=== PATIENT | female | born 1930 | race Caucasian/White ===

== ENCOUNTER → 2017-03-08 | Outpatient (CLI) | payer OTHER ==
[~2017-03-08] MED LIST: ACET-1138 PO; ANAS1TAB19 PO; ASPEC325 PO; CALC500T72 PO; CALCTAB5 PO; CHOL100010 PO; COMBIGAN0.2 MG/0.5 OPR; LEVO88TA3 PO; LISI5TAB3 PO; LUTEIN PO; MULT-506 PO; NAPR1TAB9 PO; OMEG10007 PO; OMEP40CA PO; POLY335019 PO; SENNTAB23; [UNRECOGNIZED DRUG - OTHER] PO; lantanoprost INT OCU
[2017-03-08 13:44] VITALS: BP 148/86; PULSE 72; TEMP 36.4; O2SAT 98
--- NOTE | 2017-03-08 14:46 | Radiation Oncology Follow-Up ---
Radiation Oncology Follow-Up Date of Visit Mar 08, 2017. Reason For Visit 6 month follow-up Radiation Completion Date 02/04/16 Diagnosis (1) Breast cancer Status: Resolved Onset Date: 11/04/2015 Permanent Comment: Abnormal left breast mammogram Status post fine-needle aspiration 11/04/2015 revealing infiltrating ductal carcinoma Estrogen receptor positive, progesterone receptor positive, HER-2/barney and positive Status post needle localization left partial mastectomy and sentinel lymph node biopsy 12/08/2015 Stage pT1b pN0M0 Status post completion of radiation therapy completed 02/04/2016 received 3000 cGy utilizing accelerated partial breast irradiation. 5 fractions. Last Edited By: Capri Mejia on Mar 08, 2017 14:36 History of Present Illness Ms. Morton is an 85-year-old female who was initially seen by me in referral on 07/30/1986. At that time she was found to have an abnormal first-ever mammogram which showed a suspicious area in the right breast. Needle localization biopsy was performed and revealed an infiltrating ductal carcinoma moderately differentiated measuring 0.9 x 0.8 cm. Lab number [id number]. The patient went on to have an axillary dissection. 55 nodes were examined and all were negative for metastatic disease. Lab #[id number]. The patient subsequently received an adjuvant course of radiation to the right breast and chest wall. She was treated from 08/16/1986 through 09/25/1986 receiving a dose of 49.3 Gy. The patient's disease was ER DC positive and she was treated with adjuvant hormonal therapy. She has been followed since that time and has done well with no complaint of right breast tenderness or soreness or right arm lymphedema. She underwent recent bilateral mammograms on 04/01/2015. The right breast was unremarkable An oval mass with circumscribed margins was present at the 2 o' clock position. Ultrasound demonstrated a solid mass at 2 o'clock position with findings that was most consistent with an intramammary lymph node. This was felt to be likely benign but a short interval follow-up mammogram and ultrasound was recommended in 6 months. Therefore on 10/21/2015 a repeat left breast mammogram and ultrasound was performed. The high density nodule at the 2 o'clock position was felt to have increased in size. Ultrasound demonstrated a solid mass measuring 6 mm x 5 mm x 5 mm. This change was felt to be suspicious and a biopsy was recommended. On 11/04/2015 a fine-needle aspiration of the left breast abnormality was performed. This was positive for an infiltrating ductal carcinoma. Accession # : [id number]. On 12/08/2015 the patient underwent a needle localization left partial mastectomy with sentinel node biopsy. A left sentinel node revealed no carcinoma seen. The immunohistochemical stains for cytokeratin were negative. The partial mastectomy specimen revealed an infiltrative adenocarcinoma Cotton grade 2 measuring 1.0 x 1.0 x 0.8 cm. All surgical margins were free of carcinoma. The closest margin to the infiltrative carcinoma was the anterior margin located 0.6 cm from the carcinoma. Additional inferior and superior lateral margins were taken and were negative. There was no lymphovascular invasion, no perineural invasion. The immunohistochemical stain for estrogen receptors were positive with strong intensity and the progesterone receptors were positive with strong intensity. Immunohistochemical stains for HER-2/barney protein following review as listed in addendum 2 indicated a HER-2/ barney score of +2 which is equivocal.. However FISH analysis of HER-2/barney was positive. Case: [id number]. The patient was therefore a pT1b pN0(sn-) ER positive, DC positive, HER-2/barney positive. The patient was seen by Dr. Tung Mitchell for consideration of adjuvant therapy. Given the HER-2/barney positivity Dr. Mitchell would like to proceed with one year of Herceptin therapy and an aromatase inhibitor for 5 years. We were asked to see her to evaluate the role of adjuvant radiation. Options of treatment were reviewed with her. She preferred to be treated in an accelerated way. She did not let a lengthy treatment due to distance of driving. She did not want this to interfere with her quality of life. She was found to be a candidate for accelerated partial breast treatment. Interim History She's been doing well over the past year. She denies any changes to her breast area and she has noted no masses or tenderness and no change of the axilla. She has no swelling of her arm. She did have some mild swelling of the breast at the end of treatment which mildly continues. She is up-to-date on mammography. This was performed 01/13/2017. This showed status post radiation therapy and lumpectomy on the right. Dystrophic calcifications. Benign, no evidence of malignancy. Normal interval follow-up is recommended in 12 months. Left breast is status post previous radiation therapy and lumpectomy. Architectural distortion, postsurgical scar, skin thickening, surgical clips and trabecular thickening. Benign, no evidence of malignancy. Normal interval follow-up is recommended in 12 months. She is on Arimidex and denies side effects. Allergies Coded Allergies: No Known Allergies (Unverified , 07/21/16) Home Medications Scheduled , 1 DROP OPR BID Anastrozole (Arimidex), 1 MG PO DAILY AT NOON Aspirin (Aspirin), 325 MG PO BID Calcium (Caltrate), 600 MG PO BID Calcium Ascorbate (Vitamin C), 500 MG PO QAM Cholecalciferol (Vitamin D), 1,000 INTER.UNIT PO QAM Fish Oil ([place]-3), 1 TAB PO QAM Levothyroxine Sodium (Levothyroxine Sodium), 1 TAB PO QAM Lisinopril (Zestril), 5 MG PO QAM Multivitamin (Multivitamin), 1 TAB PO QAM Omeprazole (Prilosec), 40 MG PO QAM Sennosides-Docusate Sodium (Stool Softener), 3 DAILY [Focus Macula/Lutein], 1 CAP PO BID Scheduled PRN Polyethylene Glycol 3350 (Miralax), 17 GM PO DAILY PRN for Constipation Miscellaneous Medications [lantanoprost], INT OCU Review of Systems Gastrointestinal: Symptoms: WNL Oral: Symptoms: No Problems Respiratory: Symptoms: WNL Urinary: Symptoms: Frequency Skin: Symptoms: No Problems Breast: Right Upper Arm Measurement: 29.0 Right Mid Arm Measurement: 20.5 Right Wrist Measurement: 14.0 Left Upper Arm Measurement: 28.0 Left Mid Arm Measurement: 20.5 Left Wrist Measurement: 14.0 Physical Exam Vital Signs Date Time Temp Pulse Resp B/P Pulse Ox O2 Delivery O2 Flow Rate FiO2 03/08/17 13:44 36.4 72 18 148/86 98 Pain: Patient Pain Scale: 0 - 10 Initial Pain Intensity: 0.0 Fatigue: None General Appearance: no apparent distress Eyes: normal inspection, EOMI ENT: normal ENT inspection, hearing grossly normal Neck: no adenopathy Respiratory/Chest: lungs clear, no respiratory distress, no accessory muscle use Breast: Breast examination reveals well-healed incisions of the left breast. There is some edema in the lower outer lower inner portion of the breast. There are no masses or tenderness no axillary adenopathy. She has no telangiectasia. Using the [place]um[place] score cosmesis she has a good outcome. Right breast shows well- healed incisions. There is an area of deficit in the central lower portion of the breast. There are no masses or tenderness no axillary adenopathy. Bilaterally using the [place]um[place] score cosmesis she has a good outcome. Cardiovascular: regular rate, rhythm, no gallop, no murmur Extremities: no pedal edema Neurologic/Psychiatric: no motor/sensory deficits, alert, normal mood/affect Additional Studies Mammography as reviewed above. Assessment & Plan Plan: She'll be due for her next mammogram after 01/13/2018. An order was given and this will be performed in [place]. Continue regular follow-up with her primary care physician. She continues follow-up with Dr. Donald. She continues on anastrozole. We asked her to return to our office in 1 year. She may call if she has any questions or concerns in the interim. Total Time In Follow-Up I spent 20 minutes speaking to the patient and perform examination. As to 15 minutes reviewing information and completing this note. Copy To Star Saba M.D.; Donny Donald D.O.
== END | disposition home or self-care (01) ==
LOC: C.ONC 13:23
PROVIDERS: ATTEND Physician Assistant Medical
DX: Z08 Encounter for follow-up examination after completed treatment for malignant neoplasm (principal); Z92.3 Personal history of irradiation; Z85.3 Personal history of malignant neoplasm of breast

== ENCOUNTER → 2017-04-25 | Outpatient (CLI) | payer OTHER ==
[~2017-04-25] MED LIST changes: -ACET-1138 PO; -NAPR1TAB9 PO
[2017-04-25 12:55] LABS: BASO % 0.6 %; BASO ABS # 0.04 K/uL (0-0.2); COMPLETE YES; EOS % 2.6 %; HEMATOCRIT 45.5 % (37-47); IG% 0.2 %; LYMPH % 26.2 %; LYMPH ABS # 1.68 K/uL (1.2-3.4); MEAN CORPUSCULAR HEMOGLOBIN 28.8 pg (25-34); MEAN CORPUSCULAR HGB CONC 32.3 g/dl (32-36); MEAN PLATELET VOLUME 10.9 fL (7.4-10.4); MONO % 6.1 %; NEUT % 64.3 %; PLATELET COUNT 258 K/uL (130-400); RED BLOOD COUNT 5.11 M/uL (4.2-5.4); WHITE BLOOD COUNT 6.42 K/uL (4.8-10.8)
[2017-04-25 17:36] LABS: ALT/SGPT 19 U/L (12-78); AST/SGOT 11 U/L (15-37); BLOOD UREA NITROGEN 17 mg/dl (7-18); CALCIUM 8.8 mg/dl (8.5-10.1); CARBON DIOXIDE 31 mmol/L (21-32); CHLORIDE 103 mmol/L (98-107); CREATININE 0.69 mg/dl (0.60-1.20); GLUCOSE 76 mg/dl (70-99); SODIUM 140 mmol/L (136-145)
[2017-04-25 17:47] LABS: ALB/GLOB RATIO 0.9 (0.9-2); ALKALINE PHOSPHATASE 77 U/L (45-117); FERRITIN 17.3 ng/ml (8.0-388.0)
== END | disposition home or self-care (01) ==
LOC: C.LABPBG 11:55
PROVIDERS: ATTEND Internal Medicine
DX: D50.0 Iron deficiency anemia secondary to blood loss (chronic) (principal); M81.0 Age-related osteoporosis without current pathological fracture

== ENCOUNTER → 2018-03-17 | Outpatient (CLI) | payer OTHER ==
[~2018-03-17] MED LIST changes: +ACET1TAB84 PO; +CALC600T9 PO; +GLUC15009 PO; +[UNRECOGNIZED DRUG - CODE] OPR; -lantanoprost INT OCU; +lantanoprost OPR
[2018-03-17 12:49] VITALS: BP 134/77; PULSE 66; TEMP 36.7; O2SAT 97
--- NOTE | 2018-03-17 14:32 | Radiation Oncology Follow-Up ---
Radiation Oncology Follow-Up Date of Visit March 17, 2018. Reason For Visit Annual follow-up Radiation Completion Date 02/04/16 Diagnosis (1) Breast cancer Status: Resolved Onset Date: 11/04/2015 Stage: l Permanent Comment: Abnormal left breast mammogram Status post fine-needle aspiration 11/04/2015 revealing infiltrating ductal carcinoma Estrogen receptor positive, progesterone receptor positive, HER-2/barney and positive Status post needle localization left partial mastectomy and sentinel lymph node biopsy 12/08/2015 Stage pT1b pN0M0 Status post completion of radiation therapy completed 02/04/2016 received 3000 cGy utilizing accelerated partial breast irradiation. 5 fractions. Last Edited By: Capri Mejia on Mar 08, 2017 14:36 History of Present Illness Ms. Morton was initially seen in referral on 07/30/1986. At that time she was found to have an abnormal first-ever mammogram which showed a suspicious area in the right breast. Needle localization biopsy was performed and revealed an infiltrating ductal carcinoma moderately differentiated measuring 0.9 x 0.8 cm. Lab number [id number]. The patient went on to have an axillary dissection. 55 nodes were examined and all were negative for metastatic disease. Lab #[id number]. The patient subsequently received an adjuvant course of radiation to the right breast and chest wall. She was treated from 08/16/1986 through 1985 receiving a dose of 49.3 Gy. The patient's disease was ER [place] positive and she was treated with adjuvant hormonal therapy. She has been followed since that time and has done well with no complaint of right breast tenderness or soreness or right arm lymphedema. She underwent recent bilateral mammograms on 04/01/2015. The right breast was unremarkable An oval mass with circumscribed margins was present at the 2 o' clock position. Ultrasound demonstrated a solid mass at 2 o'clock position with findings that was most consistent with an intramammary lymph node. This was felt to be likely benign but a short interval follow-up mammogram and ultrasound was recommended in 6 months. Therefore on 10/21/2015 a repeat left breast mammogram and ultrasound was performed. The high density nodule at the 2 o'clock position was felt to have increased in size. Ultrasound demonstrated a solid mass measuring 6 mm x 5 mm x 5 mm. This change was felt to be suspicious and a biopsy was recommended. On 11/04/2015 a fine-needle aspiration of the left breast abnormality was performed. This was positive for an infiltrating ductal carcinoma. Accession # : [id number]. On 12/08/2015 the patient underwent a needle localization left partial mastectomy with sentinel node biopsy. A left sentinel node revealed no carcinoma seen. The immunohistochemical stains for cytokeratin were negative. The partial mastectomy specimen revealed an infiltrative adenocarcinoma Diane grade 2 measuring 1.0 x 1.0 x 0.8 cm. All surgical margins were free of carcinoma. The closest margin to the infiltrative carcinoma was the anterior margin located 0.6 cm from the carcinoma. Additional inferior and superior lateral margins were taken and were negative. There was no lymphovascular invasion, no perineural invasion. The immunohistochemical stain for estrogen receptors were positive with strong intensity and the progesterone receptors were positive with strong intensity. Immunohistochemical stains for HER-2/barney protein following review as listed in addendum 2 indicated a HER-2/ barney score of +2 which is equivocal.. However FISH analysis of HER-2/barney was positive. Case: [id number]. The patient was therefore a pT1b pN0(sn-) ER positive, IL positive, HER-2/barney positive. The patient was seen by Dr. Tung Mitchell for consideration of adjuvant therapy. Given the HER-2/barney positivity Dr. Mitchell would like to proceed with one year of Herceptin therapy and an aromatase inhibitor for 5 years. We were asked to see her to evaluate the role of adjuvant radiation. Options of treatment were reviewed with her. She preferred to be treated in an accelerated way. She did not want this to interfere with her quality of life. She was found to be a candidate for accelerated partial breast treatment. Interim History She has been doing well over the past year. She has noted no changes in her breasts. She is found no masses or tenderness no change of the axilla. She has had no swelling of her arm. There is noted asymmetry from surgery and radiation. The right breast is much smaller than the left. She feels some of her problems are attributed to not wearing a bra on a regular basis. She is up- to-date on mammography. She is followed in medical oncology and is on Arimidex. She denies side effects. Allergies Coded Allergies: No Known Allergies (Unverified , 07/21/16) Home Medications Scheduled , 1 DROP OPR BID Acetaminophen (Tylenol Arthritis Ext Rel), 2 TAB PO DAILY Anastrozole (Arimidex), 1 MG PO DAILY AT NOON Aspirin (Aspirin), 325 MG PO BID Calcium Ascorbate (Vitamin C), 500 MG PO QAM Calcium Carbonate-Vitamin D (Calcium + D), 1 TAB PO DAILY Cholecalciferol (Vitamin D), 1,000 INTER.UNIT PO QAM Fish Oil ([place]-3), 1 TAB PO QAM Glucosamine Hydrochloride (Glucosamine), 2 TAB PO DAILY Levothyroxine Sodium (Levothyroxine Sodium), 1 TAB PO QAM Lisinopril (Zestril), 5 MG PO QAM Multivitamin (Multivitamin), 1 TAB PO QAM Omeprazole (Prilosec), 40 MG PO QAM Pilocarpine Hcl (Isopto Carpine 4% Oph), 1 DROP OPR QID Sennosides-Docusate Sodium (Stool Softener), 3 DAILY [Focus Macula/Lutein], 1 CAP PO BID [lantanoprost], 1 DROP OPR DAILY Scheduled PRN Polyethylene Glycol 3350 (Miralax), 17 GM PO DAILY PRN for Constipation Review of Systems Gastrointestinal: Symptoms: WNL GI Comments: Constipation with relief with stool softeners Oral: Symptoms: No Problems Respiratory: Symptoms: WNL Urinary: Symptoms: WNL Skin: Symptoms: No Problems Breast: Right Upper Arm Measurement: 28.0 Right Mid Arm Measurement: 20.2 Right Wrist Measurement: 13.6 Left Upper Arm Measurement: 28.0 Left Mid Arm Measurement: 21.0 Left Wrist Measurement: 14.5 Arm Dominence: Right Physical Exam Vital Signs Date Time Temp Pulse Resp B/P (MAP) Pulse Ox O2 Delivery O2 Flow Rate FiO2 03/17/18 12:49 36.7 66 16 134/77 97 Fatigue: None General Appearance: no apparent distress Eyes: normal inspection, EOMI ENT: normal ENT inspection, hearing grossly normal Neck: no adenopathy, thyroid normal Respiratory/Chest: lungs clear, no respiratory distress, no accessory muscle use Breast: Breast examination reveals asymmetry with the right breast being larger than the left. Bilaterally she has well-healed incisions. She has no masses or tenderness and no axillary adenopathy. There are no skin retractions or nipple changes. Using a heart score of cosmesis she has a poor outcome due to the asymmetry. Cardiovascular: regular rate, rhythm, no gallop, no murmur Extremities: no pedal edema Neurologic/Psychiatric: no motor/sensory deficits, alert, normal mood/affect Skin: warm/dry Pain Management Patient Reports Pain: No Pain Management Plan She denies pain therefore requires no pain management. Laboratory Laboratory Results: not applicable Pathology Pathology Results: not applicable Imaging Imaging Studies: were reviewed Imaging Comments discussed in the interim history. Assessment & Plan Plan: Continue with annual mammography. Continue regular follow-up with her primary care provider and medical oncology. She continues on Arimidex. We asked her to return to our office in 1 year. She may call if she has any questions or concerns in the interim. Total Time In Follow-Up I spent 20 minutes speaking to the patient and performing examination. I spent 15 minutes reviewing information and completing this note. Copy To Star Saba M.D.; Donny Donald D.O.
== END | disposition home or self-care (01) ==
LOC: C.ONC 12:42
PROVIDERS: ATTEND Physician Assistant Medical
DX: Z08 Encounter for follow-up examination after completed treatment for malignant neoplasm (principal); Z92.3 Personal history of irradiation; Z85.3 Personal history of malignant neoplasm of breast

== ENCOUNTER 2019-05-02 13:39 | Inpatient (IN) ==
[2019-05-02] MEDS ORDERED: PIPERACILL/TAZOBAC CONSULT ACTIVE PRN ×2 (14:27→16:53)
[2019-05-02] MEDS ORDERED: PIPERACILLIN/TAZOBACTAM 3.375 GM in DEXTROSE 5% 100 ML IV SCH (14:30)
[2019-05-02] MEDS ORDERED: SODIUM CHLORIDE 0.9% 1000ML 1,000 ML IV STA (14:30)
[2019-05-02 15:35] LABS: Basophils # (auto) 0.02 K/uL (0-0.2); Basophils % (auto) 0.3 %; Eosinophils # (auto) 0.03 K/uL (0-0.5); Eosinophils % (auto) 0.4 %; Hematocrit (blood only) 41.2 % (37-47); Hemoglobin 13.8 g/dL (12.0-16.0); Immature Granulocytes # (auto) 0.01 K/uL (0.00-0.02); Immature Granulocytes % (auto) 0.1 %; Lymphocytes # (auto) 1.21 K/uL (1.2-3.4); Lymphocytes % (auto) 16.7 %; Mean Corpuscular Hgb Conc 33.5 g/dL (32-36); Mean Corpuscular Volume 94.3 fL (80-100); Mean Platelet Volume 11.1 fL (7.4-10.4); Monocytes # (auto) 0.81 K/uL (0.11-0.59); Monocytes % (auto) 11.2 %; Neutrophils # (auto) 5.15 K/uL (1.4-6.5); Neutrophils % (auto) 71.3 %; Platelet Count 161 K/uL (130-400); RDW Coefficient of Variation 13.3 % (11.5-14.5); Red Blood Count 4.37 M/uL (4.2-5.4); White Blood Count 7.23 K/uL (4.8-10.8)
--- NOTE | 2019-05-02 15:40 | History & Physical Report ---
Date of Service May 02, 2019 Assessment & Plan (1) Acute cholecystitis: Continue intravenous Zosyn. Keep n.p.o. Administer IV fluids. Consult general surgery Present on Admission?: Yes (2) Hypothyroidism: Continue oral thyroid replacement (3) Hypertension: Continue lisinopril therapy (4) DVT prophylaxis: Heparin subcu History of Present Illness Chief Complaint: Nausea and right upper quadrant pain Primary Care Provider: Star Saba MD 88-year-old female with nausea and right upper quadrant pain for the past 3 days. She saw her primary care physician who obtained a CT scan which reveals evidence of acute cholecystitis. The patient does not appear to be septic at this time and she continues to have bowel movements although she has chronic constipation. Lab studies are pending at the time of my examination. She has been administered Zosyn and surgery will be evaluating her shortly here in the ED. She will be kept n.p.o. in the event that surgery will be done later today. Allergies Allergy/AdvReac Type Severity Reaction Status Date / Time No Known Drug Allergies Allergy Verified 05/02/19 14:33 Home Medications Home Medications Medication Instructions Recorded Confirmed Type tamoxifen 20 mg tablet 20 mg PO DAILY 03/21/19 05/02/19 History aspirin 325 mg tablet 325 mg PO DAILY tab 04/23/19 05/02/19 History lisinopril 5 mg tablet 5 mg PO DAILY #90 tab 04/23/19 05/02/19 History polyethylene glycol 3350 17 17 g PO DAILY PRN gm 04/23/19 05/02/19 History gram/dose oral powder acetaminophen ER 650 mg 1,300 mg PO DAILY tab 05/01/19 05/02/19 History tablet,extended release amoxicillin 500 mg tablet 2,000 mg PO .COMPLEX tab 05/01/19 05/02/19 History beta xiykgfnz-D-Q-lutein-min #29 1 tab PO BID tab 05/01/19 05/02/19 History 5,000 unit-60 mg-30 unit-2 mg tablet brimonidine-timolol 0.2 %-0.5 % 2 drops OP .COMPLEX ml 05/01/19 05/02/19 History eye drops calcium carbonate-vitamin D3 600 1 cap PO DAILY cap 05/01/19 05/02/19 History mg calcium-200 unit capsule cholecalciferol (vitamin D3) 2,000 2,000 units PO DAILY cap 05/01/19 05/02/19 History unit capsule docusate calcium 240 mg capsule 240 mg PO DAILY PRN cap 05/01/19 05/02/19 History tkrjlragzfz-zfe-gkgbqwbhn-hrb 1 tab PO DAILY tab 05/01/19 05/02/19 History 149-hyalur 500 mg-500 mg-66.7 mg tablet latanoprost 0.005 % eye drops 1 drops OP .COMPLEX ml 05/01/19 05/02/19 History levothyroxine 88 mcg tablet 88 mcg PO DAILY #90 tab 05/01/19 05/02/19 History multivitamin tablet 1 tab PO DAILY 05/01/19 05/02/19 History omega-3 acid ethyl esters 1 gram 1 cap PO DAILY cap 05/01/19 05/02/19 History capsule omeprazole 40 mg capsule,delayed 40 mg PO DAILY #90 cap 05/01/19 05/02/19 History release pilocarpine 1 % eye drops 1 drops OP QID ml 05/01/19 05/02/19 History netarsudil [Rhopressa] 1 drp OPHTHALMIC (EYE) PM 05/02/19 05/02/19 History Past Med/Surg History Medical History Acute cholecystitis (Acute) Solitary thyroid nodule (Acute) Osteoporosis (Acute) Macular degeneration, wet (Chronic) Iron deficiency anemia due to chronic blood loss (Acute) Hypothyroidism (Chronic) Hypertension (Chronic) Hiatal hernia with gastroesophageal reflux (Acute) Generalized osteoarthritis of multiple sites (Acute) Gait disturbance (Acute) Chronic right sacroiliac pain (Acute) Chronic constipation (Acute) No pertinent family history Surgical History No pertinent past surgical history Family History Other No pertinent family history Social History Preferred Language: Citizen Of [place] Communication Ability: Effective Visual Impairment: No Limitations Hearing Ability: Normal Feels Safe at Home: Yes Smoking Status: Never smoker Review of Systems Review of Systems: Constitutional-no fever or chills ENT-no blurred vision, no double vision, no epistaxis, no sore throat Respiratory-no cough, no wheezing, no shortness of breath Cardiac-no palpitations, no chest pain, no syncope GI-nausea and right upper quadrant discomfort for the past 3 days -no urinary retention, no urinary incontinence, no dysuria, no hematuria Musculoskeletal-no joint pain, no muscle tenderness Skin-no bruising, no rashes, no pruritus Neuro-no isolated weakness, no paresthesia, no weakness Psych-no depression, no anxiety Physical Exam Physical Exam: General-alert and oriented x3, no fevers, no chills HEENT-head atraumatic and normocephalic, TMs intact bilaterally, pupils equal and reactive to light, extraocular muscles intact Neck-no lymphadenopathy or thyromegaly, trachea midline Chest-clear to auscultation percussion. No rales wheezing or rhonchi Cardiac-regular rate and rhythm, normal S1 and S2, no murmurs Abdomen-normal bowel sounds, no hepatosplenomegaly. Tenderness in the right upper quadrant. No overt rebound or guarding Extremities-no cyanosis, clubbing, or edema Neuro-cranial nerves II through XII intact, motor and sensory function within normal limits, strength symmetrical 5/5, no focal deficits Psych-normal affect, normal mood Results & Data Vital Signs (Past 12 Hours) Vital Signs Temp Pulse Resp BP Pulse Ox 05/02/19 13:42 36.5 C 81 20 148/75 H 98 PG Care Time/CCT Total # of Minutes Spent Total Time Spent with Patient: Total time spent is greater than 50% in coordination of care (as documented) at patient's floor/unit and/or counseling patient:
[2019-05-02 15:44] LABS: Appearance Urine Clear (Clear); Bacteria Urine Automated Negative (Negative); Bilirubin Urine Negative (Negative); Blood Urine Negative (Negative); Color Urine Yellow; Epithelial Cell Urine Auto >30 /lpf (0-5); Glucose Urine UA Negative (Negative); Ketones Urine Negative (Negative); Leukocyte Esterase Urine 2+ (Negative); Nitrite Urine Negative (Negative); Protein Urine Negative (Negative); RBC Urine Automated 0-4 /hpf (0-4); Specific Gravity Urine 1.013 (1.000-1.030); Urobilinogen Urine Negative (Negative)
[2019-05-02 15:52] LABS: Albumin Level 2.9 gm/dl (3.4-5.0); BUN Creatinine Ratio 16.9 (10-20); Calcium 8.5 mg/dl (8.5-10.1); Creatinine Clr Calc Pharmacy 58.9 ml/min; Potassium 3.7 mmol/L (3.5-5.1)
--- NOTE | 2019-05-02 15:53 | Surgery Consultation ---
Date of Consultation May 02, 2019 Assessment & Plan (1) Acute cholecystitis: pt is a 88 year-old female who presents to ER with 2 days history nausea and RUQ pain, CT scan Dx acute cholecystitis, IMP: acute cholecystitis, Plan, I agree with hospitalist treatment plan, I recommend to do laparosocpic cholecystectomy, possible open or cholangiogram tomorrow, D/W benefits, risks and alternatives of the surgery, the risks - infection, bleeding, injury CBD, bowel, AL, DVT, stroke, , pt and her son understood, they agree with the plan, I answered all questions, repeat labs in am , CBC, CMP, History of Present Illness History of Present Illness Chief Complaint: Nausea and right upper quadrant pain Primary Care Provider: Star Saba MD 88-year-old female with nausea and right upper quadrant pain for the past 3 days. She saw her primary care physician who obtained a CT scan which reveals evidence of acute cholecystitis. The patient does not appear to be septic at this time and she continues to have bowel movements although she has chronic constipation. Lab studies are pending at the time of my examination. She has been administered Zosyn and surgery will be evaluating her shortly here in the ED. She will be kept n.p.o. in the event that surgery will be done later today. I got a call for consult acute cholecystitis, I reviewed pt's H/P with pt and her son at ER bedside.pt is still have sone nausea and RUQ pain, no chest pain, no diarrhea, no fever. Allergies Allergy/AdvReac Type Severity Reaction Status Date / Time No Known Drug Allergies Allergy Verified 05/02/19 14:33 Home Medications Home Medications Medication Instructions Recorded Confirmed Type tamoxifen 20 mg tablet 20 mg PO DAILY 03/21/19 05/02/19 History aspirin 325 mg tablet 325 mg PO DAILY tab 04/23/19 05/02/19 History lisinopril 5 mg tablet 5 mg PO DAILY #90 tab 04/23/19 05/02/19 History polyethylene glycol 3350 17 17 g PO DAILY PRN gm 04/23/19 05/02/19 History gram/dose oral powder acetaminophen ER 650 mg 1,300 mg PO DAILY tab 05/01/19 05/02/19 History tablet,extended release amoxicillin 500 mg tablet 2,000 mg PO .COMPLEX tab 05/01/19 05/02/19 History beta zlldjyfo-A-E-lutein-min #29 1 tab PO BID tab 05/01/19 05/02/19 History 5,000 unit-60 mg-30 unit-2 mg tablet brimonidine-timolol 0.2 %-0.5 % 2 drops OP .COMPLEX ml 05/01/19 05/02/19 History eye drops calcium carbonate-vitamin D3 600 1 cap PO DAILY cap 05/01/19 05/02/19 History mg calcium-200 unit capsule cholecalciferol (vitamin D3) 2,000 2,000 units PO DAILY cap 05/01/19 05/02/19 History unit capsule docusate calcium 240 mg capsule 240 mg PO DAILY PRN cap 05/01/19 05/02/19 History oroaexrnnmz-csz-iyfdjhrfk-hrb 1 tab PO DAILY tab 05/01/19 05/02/19 History 149-hyalur 500 mg-500 mg-66.7 mg tablet latanoprost 0.005 % eye drops 1 drops OP .COMPLEX ml 05/01/19 05/02/19 History levothyroxine 88 mcg tablet 88 mcg PO DAILY #90 tab 05/01/19 05/02/19 History multivitamin tablet 1 tab PO DAILY 05/01/19 05/02/19 History omega-3 acid ethyl esters 1 gram 1 cap PO DAILY cap 05/01/19 05/02/19 History capsule omeprazole 40 mg capsule,delayed 40 mg PO DAILY #90 cap 05/01/19 05/02/19 History release pilocarpine 1 % eye drops 1 drops OP QID ml 05/01/19 05/02/19 History netarsudil [Rhopressa] 1 drp OPHTHALMIC (EYE) PM 05/02/19 05/02/19 History Patient History Medical History Acute cholecystitis (Acute) Solitary thyroid nodule (Acute) Osteoporosis (Acute) Macular degeneration, wet (Chronic) Iron deficiency anemia due to chronic blood loss (Acute) Hypothyroidism (Chronic) Hypertension (Chronic) Hiatal hernia with gastroesophageal reflux (Acute) Generalized osteoarthritis of multiple sites (Acute) Gait disturbance (Acute) Chronic right sacroiliac pain (Acute) Chronic constipation (Acute) No pertinent family history Surgical History No pertinent past surgical history Family History Other No pertinent family history Social History Preferred Language: Citizen Of [place] Communication Ability: Effective Visual Impairment: No Limitations Hearing Ability: Normal Feels Safe at Home: Yes Smoking Status: Never smoker Review of Systems Review of Systems: All systems reviewed & are unremarkable except as noted in HPI & below Ear, Nose, Mouth, Throat: as per Subjective / HPI Respiratory: as per Subjective / HPI Cardiovascular: Additional Comments: ascending aorta-4.8cm Gastrointestinal: as per Subjective / HPI GERD, hiatal hernia Genitourinary: as per Subjective / HPI breast cancer 2015 Neurologic: as per Subjective / HPI Psychiatric: as per Subjective / HPI Endocrine: hypothyroidism Hematologic / Lymphatic: as per Subjective / HPI Physical Exam Constitutional: WD/WN, vitals as above well developed and well nourished ENMT: external ear and nose normal, oropharynx normal Neck: trachea midline, no thyromegaly Respiratory: normal respiratory effort, lungs clear to auscultation normal respiratory effort Cardiovascular: RRR, no murmur, no edema Rate/Rhythm: regular rate and regular rhythm Heart Sounds: normal S1 and normal S2 Gastrointestinal (Abdomen): soft, some tenderness at RUQ and RLQ, no rebound pain, no mass, BS +, no distend Neurologic: patellar DTR's 2+ bilat, sensation intact Psychiatric: A+Ox3, euthymic affect Orientation: alert and oriented x 3 Lymphatic: no cervical or axillary lymphadenopathy Results & Data Vital Signs (Past 12 Hours) Vital Signs Temp Pulse Resp BP Pulse Ox 05/02/19 13:42 36.5 C 81 20 148/75 H 98 Laboratory Results Abnormal lab results 05/02/19 05/02/19 05/02/19 Range/Units 15:10 15:10 15:20 MPV 11.1 H (7.4-10.4) fL [place] # (Auto) 0.81 H (0.11-0.59) K/uL AST 8 L (15-37) U/L ALT 11 L (12-78) U/L Albumin 2.9 L (3.4-5.0) gm/dl Globulin 4.1 H (2.5-4.0) gm/dl Albumin/Globulin Ratio 0.7 L (0.9-2) Lipase 40 L (73-393) U/L Ur Leukocyte Esterase 2+ H (Negative) U Epithel Cells (Auto) >30 H (0-5) /lpf Diagnostic Findings CT OF THE ABDOMEN AND PELVIS WITHOUT CONTRAST CLINICAL HISTORY: Mass noted on KUB. COMPARISON STUDY: KUB May 01, 2019. TECHNIQUE: Axial images of the abdomen and pelvis were obtained without IV contrast. Oral contrast was administered. Automated exposure control was utilized for the study. A dose lowering technique was utilized adhering to the principles of ALARA. FINDINGS: Imaged portions the lower chest demonstrate dilatation of the ascending aorta which measures 4.8 cm. The heart is moderately enlarged. Extensive coronary artery calcification is present. Large hiatal hernia with partially intrathoracic stomach is noted. Adjacent airspace opacity reflects atelectasis. There are post therapeutic findings within the left breast. Evaluation of the abdomen and pelvis is suboptimal on this unenhanced examination. There is no biliary or pancreatic ductal dilatation. The gallbladder is markedly distended with wall thickening and extensive adjacent infiltration and fluid. The gallbladder measures 15 x 5.6 x 4.9 cm. The material within the gallbladder is slightly dense. A densely calcified 6.7 x 5.9 cm lesion within the inferior aspect of the spleen is noted. This corresponds to the finding on KUB performed May 01, 2019. This is unchanged from a chest radiograph September 01, 2011. No definitive soft tissue component is noted. Images of the pelvis are degraded by streak artifact from bilateral hip arthroplasties. A small amount of ascites within the pelvis is noted. There is also a small amount of fluid within the right groin hernia, likely femoral. Extensive colonic diverticulosis is noted without evidence for acute diverticulitis. There is no gas within the gallbladder wall. No pneumatosis, free air or portal venous gas is present. Punctate bilateral renal calculi are noted. There is no hydronephrosis. IMPRESSION: 1. Markedly distended gallbladder which extends into the right lower quadrant. Moderate gallbladder wall thickening with extensive pericholecystic infiltration and fluid. The findings suggest severe acute cholecystitis. Surgical consultation is recommended. Discussed with Teresa Young at time of dictation. 2. Densely calcified 6.7 x 5.9 cm splenic lesion. Although indeterminate, this is similar to a chest radiograph of September 01, 2011 and is therefore likely benign. 3. Moderate dilatation of visualized portions of the ascending aorta, measuring 4.8 cm. Extensive coronary artery calcification. 4. Large hiatal hernia with partially intrathoracic stomach.
[2019-05-02 15:55] LABS: Albumin Globulin Ratio 0.7 (0.9-2); Bilirubin,Total 0.6 mg/dl (0.2-1); Globulin 4.1 gm/dl (2.5-4.0)
[2019-05-02] MEDS ORDERED: ACETAMINOPHEN 325 MG TAB PO PRN (16:53)
[2019-05-02] MEDS ORDERED: POLYETHYLENE (MIRALAX) 17 GM PACK PO PRN (16:53)
[2019-05-02] MEDS ORDERED: ONDANSETRON INJ 2 MG/ML 2 ML VIAL IV PRN (16:53)
[2019-05-02] MEDS ORDERED: DOCUSATE CALCIUM 240 MG CAPSULE PO PRN (16:53)
--- NOTE | 2019-05-02 16:55 | Emergency Department Note ---
ED Visit Note I assisted Dr. Plata in the care of this patient. Please refer to his note for complete details of ED course. . Resident Activity Tracking Resident Involvement: Resident Care Provided Care Provided: Adult ED
[2019-05-02] MEDS ORDERED: Nursing to Pharmacy Communication ONE (17:23)
--- NOTE | 2019-05-02 17:51 | Emergency Department Note ---
Entered by Peggy Logan acting as a scribe for Rk Plata DO History of Present Illness General Chief complaint: Abnormal Labs/Diagnostic Testing Stated complaint: ABD PAIN,ABNORMAL CT THIS MORNING Time Seen by Provider: 05/02/19 14:33 Source: patient Mode of arrival: ambulatory Limitations: no limitations History of Present Illness Onset (ago): day(s) 3 Location: abdomen Pain Consistency: + other (episode) Maximum Pain Intensity: 5 Quality: + other (abnormal labs) Relieved By: + rest Exacerbated By: + eating Associated symptoms: + loss of appetite, + nausea/vomiting (The patient compl ains of nausea. The patient denies vomiting. ) and + other (The patient comp lains of abdominal pain. ); no fever/chills (The patient denies fevers. ) The patient is an 88 year old female with a history of breast cancer, hypertension, and hypothyroidism who presents to the ED with complaints of an episode of abnormal labs that onset 3 days ago. The patient presents with her son. The patient states that she was seen by her PCP and had a CT of her abdomen completed that showed colitis. The patient complains nausea, loss of appetite, and abdominal pain. She notes that the pain is exacerbated with eating and alleviated with rest. The patient denies vomiting and fevers. She states that her last bowel movement was 3 days ago. Home Medications Home Medications Medication Instructions Recorded Confirmed Type tamoxifen 20 mg tablet 20 mg PO DAILY 03/21/19 05/02/19 History aspirin 325 mg tablet 325 mg PO DAILY tab 04/23/19 05/02/19 History lisinopril 5 mg tablet 5 mg PO DAILY #90 tab 04/23/19 05/02/19 History polyethylene glycol 3350 17 17 g PO DAILY PRN gm 04/23/19 05/02/19 History gram/dose oral powder acetaminophen ER 650 mg 1,300 mg PO DAILY tab 05/01/19 05/02/19 History tablet,extended release amoxicillin 500 mg tablet 2,000 mg PO .COMPLEX tab 05/01/19 05/02/19 History beta ccxbnktd-B-L-lutein-min #29 1 tab PO BID tab 05/01/19 05/02/19 History 5,000 unit-60 mg-30 unit-2 mg tablet brimonidine-timolol 0.2 %-0.5 % 2 drops OP .COMPLEX ml 05/01/19 05/02/19 History eye drops calcium carbonate-vitamin D3 600 1 cap PO DAILY cap 05/01/19 05/02/19 History mg calcium-200 unit capsule cholecalciferol (vitamin D3) 2,000 2,000 units PO DAILY cap 05/01/19 05/02/19 History unit capsule docusate calcium 240 mg capsule 240 mg PO DAILY PRN cap 05/01/19 05/02/19 History vsinkkzaqru-ogj-ksaqgfdef-hrb 1 tab PO DAILY tab 05/01/19 05/02/19 History 149-hyalur 500 mg-500 mg-66.7 mg tablet latanoprost 0.005 % eye drops 1 drops OP .COMPLEX ml 05/01/19 05/02/19 History levothyroxine 88 mcg tablet 88 mcg PO DAILY #90 tab 05/01/19 05/02/19 History multivitamin tablet 1 tab PO DAILY 05/01/19 05/02/19 History omega-3 acid ethyl esters 1 gram 1 cap PO DAILY cap 05/01/19 05/02/19 History capsule omeprazole 40 mg capsule,delayed 40 mg PO DAILY #90 cap 05/01/19 05/02/19 Hist ory release pilocarpine 1 % eye drops 1 drops OP QID ml 05/01/19 05/02/19 History netarsudil [Rhopressa] 1 drp OPHTHALMIC (EYE) PM 05/02/19 05/02/19 History Allergies Allergy/AdvReac Type Severity Reaction Status Date / Time No Known Drug Allergies Allergy Verified 05/02/19 14:33 Past Med/Surg History Medical History Acute cholecystitis (Acute) Solitary thyroid nodule (Acute) Osteoporosis (Acute) Macular degeneration, wet (Chronic) Iron deficiency anemia due to chronic blood loss (Acute) Hypothyroidism (Chronic) Hypertension (Chronic) Hiatal hernia with gastroesophageal reflux (Acute) Generalized osteoarthritis of multiple sites (Acute) Gait disturbance (Acute) Chronic right sacroiliac pain (Acute) Chronic constipation (Acute) No pertinent family history Surgical History No pertinent past surgical history Family History Other No pertinent family history Social History Preferred Language: [place] Communication Ability: Effective Visual Impairment: No Limitations Hearing Ability: Normal Feels Safe at Home: Yes Smoking Status: Never smoker Review of Systems See HPI for pertinent positives & negatives. and A total of 10 systems reviewed and were otherwise negative Physical Exam Vital Signs Vital Signs - 24 hr 05/02/19 13:42 Temperature 36.5 C Temperature Source Oral Sepsis Recent Fever Within 48 Hours No Sepsis New/Unexplained Change in Mental Status No Sepsis Action Taken by Nursing No Action Required Pulse Rate 81 Respiratory Rate 20 Respiratory Depth Normal Blood Pressure 148/75 H Blood Pressure Mean 99 Pulse Oximetry 98 Oxygen Delivery Method Room Air GENERAL: Well-appearing for stated age, no acute distress, non-toxic EYE EXAM: Normal conjunctiva. OROPHARYNX: no exudate, no erythema, lips, buccal mucosa, and tongue normal and mucous membranes are moist NECK: supple, no nuchal rigidity, no adenopathy, non-tender LUNGS: Clear to auscultation. Normal chest wall mechanics HEART: no murmurs, S1 normal and S2 normal ABDOMEN: abdomen soft, tender in right upper quadrant, normo-active bowel sounds, no masses, no rebound or guarding. BACK: Back is symmetrical on inspection and there is no deformity, no midline tenderness, no CVA tenderness. SKIN: no rashes and no bruising UPPER EXTREMITIES: upper extremities are grossly normal. LOWER EXTREMITIES: No pitting edema. NEURO EXAM: Normal sensorium, cranial nerves II-XII grossly intact, normal speech, no gross weakness of arms, no gross weakness of legs. Course 1410: Past medical records reviewed. The patient was evaluated in room C6. A complete history and physical examination was performed. 1420: I reviewed the patient's case with Dr. Isaac Urban [facility]. She will come up to see the patient but is currently in surgery. 1500: I reviewed the patient's case with Dr. Phillip Loaiza [facility]. He will evaluate the patient for further management. Consultations Consultation #1: 1420: I reviewed the patient's case with Dr. Isaac Frias [facility]. She will come up to see the patient but is currently in surgery. Time: 14:20 Consultation #2: 1500: I reviewed the patient's case with Dr. Phillip Loaiza [facility]. He will evaluate the patient for further management. Time: 15:00 Administered Medications Piperacillin Sod/Tazobactam (Sod 3.375 gm/ Dextrose) 115 mls @ 28.75 mls/hr IV Q8H [facility]; Protocol Stop: 05/12/19 14:29 Last Admin: 05/02/19 15:22 Dose: 28.8 mls/hr Documented by: [id number] Sodium Chloride (Nss 1000ml) 1,000 mls @ 100 mls/hr IV .Q10H STA Stop: 05/03/19 00:29 Last Admin: 05/02/19 15:21 Dose: 100 mls/hr Documented by: [id number] Medical Decision Making Differential Diagnosis Differential diagnoses: Appendicitis, diverticulitis, PUD, biliary pathology, UTI, pancreatitis, obstruction, mesenteric ischemia, aortic pathology, infections, inflammatory bowel disease, renal colic, as well as others were entertained. Medical Records Attestation: I reviewed the patient's medical records. Home Medications Current Medication List: was personally reviewed by me Laboratory Data Attestation: I reviewed the patient's lab results. Result diagrams: 05/02/19 15:10 05/02/19 15:10 Lab Results 05/02/19 05/02/19 05/02/19 Range/Units 15:10 15:10 15:20 WBC 7.23 (4.8-10.8) K/uL RBC 4.37 (4.2-5.4) M/uL Hgb 13.8 (12.0-16.0) g/dL Hct 41.2 (37-47) % MCV 94.3 (80-100) fL MCH 31.6 (25-34) pg MCHC 33.5 (32-36) g/dL RDW Std Deviation 46.0 (36.4-46.3) fL RDW Coeff of Cheri 13.3 (11.5-14.5) % Plt Count 161 (130-400) K/uL MPV 11.1 H (7.4-10.4) fL Immature Gran % (Auto) 0.1 % Neut % (Auto) 71.3 % Lymph % (Auto) 16.7 % George % (Auto) 11.2 % Eos % (Auto) 0.4 % Baso % (Auto) 0.3 % Immature Gran # (Auto) 0.01 (0.00-0.02) K/uL Neut # (Auto) 5.15 (1.4-6.5) K/uL Lymph # (Auto) 1.21 (1.2-3.4) K/uL [place] # (Auto) 0.81 H (0.11-0.59) K/uL Eos # (Auto) 0.03 (0-0.5) K/uL Baso # (Auto) 0.02 (0-0.2) K/uL Sodium 139 (136-145) mmol/L Potassium 3.7 (3.5-5.1) mmol/L Chloride 105 (98-107) mmol/L Carbon Dioxide 29 (21-32) mmol/L Anion Gap 5.0 (3-11) BUN 10 (7-18) mg/dl Creatinine 0.60 (0.6-1.2) mg/dl Est Cr Clr Drug Dosing 58.9 ml/min Est GFR ( Amer) 95.0 Est GFR (Non-Af Amer) 82.0 BUN/Creatinine Ratio 16.9 (10-20) Glucose 83 (70-99) mg/dl Calcium 8.5 (8.5-10.1) mg/dl Total Bilirubin 0.6 (0.2-1) mg/dl AST 8 L (15-37) U/L ALT 11 L (12-78) U/L Alkaline Phosphatase 51 (45-117) U/L Total Protein 7.0 (6.4-8.2) gm/dl Albumin 2.9 L (3.4-5.0) gm/dl Globulin 4.1 H (2.5-4.0) gm/dl Albumin/Globulin Ratio 0.7 L (0.9-2) Lipase 40 L (73-393) U/L Urine Color Yellow Urine Appearance Clear (Clear) Urine pH 6.0 (4.5-7.5) Ur Specific [place] 1.013 (1.000-1.030) Urine Protein Negative (Negative) Urine Glucose (UA) Negative (Negative) Urine Ketones Negative (Negative) Urine Blood Negative (Negative) Urine Nitrite Negative (Negative) Urine Bilirubin Negative (Negative) Urine Urobilinogen Negative (Negative) Ur Leukocyte Esterase 2+ H (Negative) Urine WBC (Auto) 1-5 (0-5) /hpf Urine RBC (Auto) 0-4 (0-4) /hpf U Hyaline Cast (Auto) 1-5 (0-5) /lpf U Epithel Cells (Auto) >30 H (0-5) /lpf Urine Bacteria (Auto) Negative (Negative) Blood Pressure Blood Pressure Findings: Normal blood pressure MDM Narrative Patient is an 88-year-old female who presents the ED for right mid quadrant abdominal pain associate with eating and drinking. She notes that this is been present since Tuesday. She admits to feeling nauseated and intermittent vomiti ng. Labs were obtained and showed no significant leukocytosis or anemia. BMP was unremarkable. LFT and bilirubin without any significant abnormality. Lipase is normal. UA was unremarkable. CT was reviewed with the outpatient which showed likely acute cholecystitis. Patient was given IV fluids, and IV Zosyn. She denied/declined any pain medications. She is updated bedside. Discussed with the general surgeon and the hospitalist and patient was admitted for further work-up. Patient was seen independently the resident. Impression & Plan Acute cholecystitis Discharge Plan Visit Data *Final* Discharge Date/Time: 05/02/19 16:34 Chief Complaint: Abnormal Labs/Diagnostic Testing Stated Complaint: ABD PAIN,ABNORMAL CT THIS MORNING ED Provider: Rk Plata ED Midlevel Provider: Peng Mckeon Discharge Problem: Acute cholecystitis Patient Disposition: Admitted As Inpatient Discharge Instructions Interventions: ED Discharge Assessment Last Done: 05/02/19 16:34 The scribe's documentation has been prepared under my direction and personally reviewed by me in its entirety. I confirm that the note above accurately reflects all work, treatment, procedures, and medical decision making performed by me.
--- NOTE | 2019-05-02 18:49 | Anesthesiology Consultation ---
Date of Service May 02, 2019 Assessment & Plan (1) Encounter for pre-operative examination: Chart Review Chart Review: Acceptable Risk for Surgery and Patient NOT seen in Pre Admission Testing will order preop ECG if one not already completed. appears optimized for surgery tomorrow. Consults Requested none Proposed Anesthesia Risk / Benefits Reviewed With: PT / POA / Parent / Guardian, Accepts Plan and Informed Consent Obtained History Surgery Operation Date: 05/03/19 11:00 Proposed Procedures p Laparoscopic Cholecystectomy - Refugio Gray MD Height/Weight Height: 5 ft 1 in Weight: 69.5 kg Allergies Allergy/AdvReac Type Severity Reaction Status Date / Time No Known Drug Allergies Allergy Verified 05/02/19 14:33 Medications Home Medications Medication Instructions Recorded Confirmed Last Taken tamoxifen 20 mg tablet 20 mg PO DAILY 03/21/19 05/02/19 05/02/19 aspirin 325 mg tablet 325 mg PO DAILY tab 04/23/19 05/02/19 05/02/19 lisinopril 5 mg tablet 5 mg PO DAILY #90 tab 04/23/19 05/02/19 05/02/19 polyethylene glycol 3350 17 17 g PO DAILY PRN gm 04/23/19 05/02/19 Unknown gram/dose oral powder acetaminophen ER 650 mg 1,300 mg PO DAILY tab 05/01/19 05/02/19 05/02/19 tablet,extended release amoxicillin 500 mg tablet 2,000 mg PO .COMPLEX tab 05/01/19 05/02/19 11/13/18 beta xtlfbryf-V-T-lutein-min #29 1 tab PO BID tab 05/01/19 05/02/19 05/02/19 5,000 unit-60 mg-30 unit-2 mg tablet brimonidine-timolol 0.2 %-0.5 % 2 drops OP .COMPLEX ml 05/01/19 05/02/19 05/02/19 eye drops calcium carbonate-vitamin D3 600 1 cap PO DAILY cap 05/01/19 05/02/19 05/02/19 mg calcium-200 unit capsule cholecalciferol (vitamin D3) 2,000 2,000 units PO DAILY cap 05/01/19 05/02/19 05/02/19 unit capsule docusate calcium 240 mg capsule 240 mg PO DAILY PRN cap 05/01/19 05/02/19 Unknown uazblomuuvj-jeh-igrrnoqgm-hrb 1 tab PO DAILY tab 05/01/19 05/02/19 05/02/19 149-hyalur 500 mg-500 mg-66.7 mg tablet latanoprost 0.005 % eye drops 1 drops OP .COMPLEX ml 05/01/19 05/02/19 05/02/19 levothyroxine 88 mcg tablet 88 mcg PO DAILY #90 tab 05/01/19 05/02/19 05/02/19 multivitamin tablet 1 tab PO DAILY 05/01/19 05/02/19 05/02/19 omega-3 acid ethyl esters 1 gram 1 cap PO DAILY cap 05/01/19 05/02/19 05/02/19 capsule omeprazole 40 mg capsule,delayed 40 mg PO DAILY #90 cap 05/01/19 05/02/19 05/02/19 release pilocarpine 1 % eye drops 1 drops OP QID ml 05/01/19 05/02/19 05/02/19 netarsudil [Rhopressa] 1 drp OPHTHALMIC (EYE) PM 05/02/19 05/02/19 05/01/19 Active Medications Generic Name Dose Route Start Last Admin Trade Name Freq PRN Reason Stop Dose Admin Heparin Sodium (Porcine) 5,000 units 05/02/19 21:00 05/02/19 22:35 Heparin Sodium (Porcine) SQ 06/01/19 20:59 5,000 units Q12 AMY Administration Piperacillin Sod/Tazobactam 115 mls @ 28.75 mls/hr 05/03/19 00:00 05/03/19 07:51 Sod 3.375 gm/ Dextrose IV 05/13/19 00:00 28.8 mls/hr Q8H AMY Administration Protocol Sodium Chloride 1,000 mls @ 100 mls/hr 05/03/19 01:00 05/03/19 09:40 Nss 1000ml IV 06/02/19 00:59 100 mls/hr .Q10H AMY Administration Latanoprost 1 drops 05/02/19 21:00 05/02/19 21:49 Xalatan Oph OPR 06/01/19 20:59 1 drops HS AMY Administration Levothyroxine Sodium 88 mcg 05/03/19 06:30 05/03/19 05:31 Synthroid PO 06/02/19 06:29 88 mcg DAILYBB AMY Administration Lisinopril 5 mg 05/03/19 09:00 05/03/19 07:53 Zestril PO 06/02/19 08:59 5 mg DAILY AMY Administration Miscellaneous 1 ea 05/02/19 20:00 05/03/19 07:51 Order Awaiting Action N/A 06/01/19 19:59 Not Given QS AMY Miscellaneous 1 ea 05/02/19 20:00 05/03/19 07:52 Order Awaiting Action N/A 06/01/19 19:59 Not Given QS AMY Multivitamins 1 tab 05/03/19 09:00 05/03/19 07:53 Multivitamin Tab PO 06/02/19 08:59 1 tab DAILY AMY Administration Multivitamins/Minerals 1 tab 05/03/19 09:00 05/03/19 07:52 Caltrate Plus PO 06/02/19 08:59 1 tab DAILY AMY Administration Pantoprazole Sodium 40 mg 05/03/19 09:00 05/03/19 07:52 Protonix PO 06/02/19 08:59 40 mg DAILY AMY Administration Pilocarpine HCl 1 drops 05/02/19 21:00 05/03/19 07:54 Isopto Carpine 1% Opn Soln OP 06/01/19 20:59 1 drops QID AMY Administration Tamoxifen Citrate 20 mg 05/03/19 09:00 05/03/19 07:53 Nolvadex PO 06/02/19 08:59 20 mg DAILY AMY Administration Vitamin D 2,000 units 05/03/19 09:00 05/03/19 07:53 Vitamin D3 PO 06/02/19 08:59 2,000 units DAILY AYM Administration NPO Date Last Intake of Fluids: 05/02/19 Time Last Intake of Fluids: 20:00 Date Last Intake of Solids: 05/02/19 Time Last Intake of Solids: 20:00 Past Medical History Medical History Acute cholecystitis (Acute) Solitary thyroid nodule (Acute) Osteoporosis (Acute) Macular degeneration, wet (Chronic) Iron deficiency anemia due to chronic blood loss (Acute) Hypothyroidism (Chronic) Hypertension (Chronic) Hiatal hernia with gastroesophageal reflux (Acute) Generalized osteoarthritis of multiple sites (Acute) Gait disturbance (Acute) Chronic right sacroiliac pain (Acute) Chronic constipation (Acute) Breast cancer (Resolved 11/04/15) Cystocele repaired GERD (gastroesophageal reflux disease) H/O: hysterectomy No pertinent family history Exercise / Class Metabolic Activity II 4-5 Yardwork/Stairs/Walk up hill Past Family History Family History Other No pertinent family history Past Surgical History Surgical History H/O hemorrhoidectomy H/O lumpectomy S/P total hip arthroplasty Past Anesthesia History No Hx of Anesthesia Complications and No Family Hx of Anesthesia Complications History of PONV No Hx of PONV and No Hx of Motion Sickness Social History Smoking Status: Never smoker Physical Exam Vital Signs Last Vital Signs Temp 36.7 C 05/03/19 11:11 Pulse 79 05/03/19 11:11 Resp 20 05/03/19 11:11 BP 124/75 05/03/19 11:11 Pulse Ox 95 05/03/19 11:11 ENMT Mouth: no dentition abnormality Thyromental Distance: > or= 3.5 Finger Breadths Mallampati Class: II Neck normal visual inspection Respiratory normal respiratory effort Auscultation: lungs clear to auscultation bilaterally Cardiovascular Rate/Rhythm: regular rate and regular rhythm Psychiatric Orientation: alert Testing Laboratory Results 05/03/19 07:13 05/03/19 07:13 PT 10.6 Seconds (9.0-12.0) 05/02/19 15:20 INR 1.0 (0.9-1.1) 05/02/19 15:20 Urine Color Yellow 05/02/19 15:20 Urine Appearance Clear (Clear) 05/02/19 15:20 Urine pH 6.0 (4.5-7.5) 05/02/19 15:20 Ur Specific [place] 1.013 (1.000-1.030) 05/02/19 15:20 Urine Protein Negative (Negative) 05/02/19 15:20 Urine Glucose (UA) Negative (Negative) 05/02/19 15:20 Urine Ketones Negative (Negative) 05/02/19 15:20 Urine Nitrite Negative (Negative) 05/02/19 15:20 Ur Leukocyte Esterase 2+ (Negative) H 05/02/19 15:20 Urine WBC (Auto) 1-5 /hpf (0-5) 05/02/19 15:20 Urine RBC (Auto) 0-4 /hpf (0-4) 05/02/19 15:20 U Hyaline Cast (Auto) 1-5 /lpf (0-5) 05/02/19 15:20 U Epithel Cells (Auto) >30 /lpf (0-5) H 05/02/19 15:20 Urine Bacteria (Auto) Negative (Negative) 05/02/19 15:20
[2019-05-02] MEDS: COMBIGAN~ORDER AWAITING ACTION SCH (19:58)
[2019-05-02 20:20] LABS: Prothrombin Time 10.6 Seconds (9.0-12.0)
[2019-05-02] MEDS ORDERED: [UNRECOGNIZED DRUG - OTHER] PO SCH (21:00)
[2019-05-02] MEDS ORDERED: LUTEIN PO SCH (21:00)
[2019-05-02] MEDS: LATANOPROST 0.005% OP SOLN 2.5 ML BTL OPR SCH (21:49)
[2019-05-02] MEDS: PILOCARPINE HCL 1% OP SOLN 15 ML BTL OP SCH (21:50)
[2019-05-02] MEDS: HEPARIN SOD 5,000 UNIT/0.5 ML VIAL SQ SCH (22:35)
[2019-05-02] MEDS: SODIUM CHLORIDE 0.9% 1000ML 1,000 ML IV SCH (23:48)
[2019-05-02] MEDS: PIPERACILLIN/TAZOBACTAM 3.375 GM in DEXTROSE 5% 100 ML IV SCH (23:48)
[2019-05-03] MEDS: COMBIGAN~ORDER AWAITING ACTION SCH ×3 (00:02→17:06)
[2019-05-03] MEDS: LEVOTHYROXINE SODIUM 88 MCG TABLET PO SCH (05:31)
[2019-05-03 07:41] LABS: Basophils # (auto) 0.01 K/uL (0-0.2); Basophils % (auto) 0.2 %; Eosinophils # (auto) 0.05 K/uL (0-0.5); Eosinophils % (auto) 0.9 %; Hematocrit (blood only) 39.7 % (37-47); Hemoglobin 13.2 g/dL (12.0-16.0); Lymphocytes # (auto) 1.03 K/uL (1.2-3.4); Lymphocytes % (auto) 18.4 %; Mean Corpuscular Hgb Conc 33.2 g/dL (32-36); Monocytes # (auto) 0.55 K/uL (0.11-0.59); Monocytes % (auto) 9.8 %; Neutrophils # (auto) 3.96 K/uL (1.4-6.5); Neutrophils % (auto) 70.7 %; Platelet Count 163 K/uL (130-400); RDW Coefficient of Variation 13.2 % (11.5-14.5); RDW Standard Deviation 46.1 fL (36.4-46.3); Red Blood Count 4.18 M/uL (4.2-5.4)
[2019-05-03] MEDS: PIPERACILLIN/TAZOBACTAM 3.375 GM in DEXTROSE 5% 100 ML IV SCH (07:51)
[2019-05-03] MEDS: PANTOprazole 40 MG TAB PO SCH (07:52)
[2019-05-03] MEDS: CALCIUM 600MG + VIT D 400 IU TAB PO SCH (07:52)
[2019-05-03] MEDS: LISINOPRIL 5 MG TAB PO SCH (07:53)
[2019-05-03] MEDS: TAMOXIFEN CITRATE 10 MG TABLET PO SCH (07:53)
[2019-05-03] MEDS: CHOLECALCIFEROL 1,000 UNITS TAB PO SCH (07:53)
[2019-05-03] MEDS: MULTIVITAMIN TAB PO SCH (07:53)
[2019-05-03] MEDS: PILOCARPINE HCL 1% OP SOLN 15 ML BTL OP SCH ×4 (07:54→21:27)
[2019-05-03 08:18] LABS: BUN Creatinine Ratio 19.5 (10-20); Calcium 8.2 mg/dl (8.5-10.1); Creatinine Clr Calc Pharmacy 73.6 ml/min; Est GFR (African American) 102.2; Est GFR (Non-African American) 88.2; Potassium 3.3 mmol/L (3.5-5.1)
[2019-05-03] MEDS ORDERED: POTASSIUM CHLORIDE 20 MEQ TABCR PO STA (08:26)
[2019-05-03] MEDS ORDERED: OMEGA ACID ETHYL ESTERS PO SCH (09:00)
[2019-05-03] MEDS: SODIUM CHLORIDE 0.9% 1000ML 1,000 ML IV SCH ×2 (09:40→21:26)
[2019-05-03] MEDS ORDERED: fentaNYL citrate 100 MCG/2 ML VIAL ONE ×2 (10:41→11:59)
[2019-05-03] MEDS ORDERED: LIDOCAINE HCL 2% 2 ML VIAL/AMP(20MG/ML) INFIL ONE (10:43)
[2019-05-03] MEDS ORDERED: PROPOFOL IV EMULSION 10 MG/ML 20 ML VIAL IV ONE (10:43)
[2019-05-03] MEDS ORDERED: ROCURONIUM BROMIDE 10 MG/ML 5 ML VIAL ONE (10:43)
--- NOTE | 2019-05-03 10:46 | Hospitalist Progress Note ---
Date of Service May 03, 2019 Assessment & Plan (1) Acute cholecystitis: - Noted on CT A/P at admission after presenting with abdominal pain. - Continue Zosyn IV for empiric coverage. - NPO for procedure; IV fluids at 100 cc/hr. - General surgery consulted, plan for lap alexia today. - Tylenol prn pain, Zofran prn N/V. (2) Hypothyroidism: - Continue Synthroid 88 mcg daily. - No recently documented TSH -- will order in the AM. (3) Hypertension: - Continue Lisinopril 5 mg daily. (4) History of DVT (deep vein thrombosis): - Previously treated with Warfarin; pt. takes Aspirin 325 mg daily -- will hold. - Holding heparin ppx for procedure. - High risk for DVT due to maligancy/hypercoaguable state. (5) Breast cancer: - H/o -- continue Tamoxifen as prescribed. (6) GERD (gastroesophageal reflux disease): - PPI daily. (7) Electrolyte abnormality: - K level 3.3 -- ordered KCl 40 mEq PO. (8) DVT prophylaxis: - Holding for procedure. Dispo: Med/surg for treatment of acute cholecystitis; discharge likely on 05/04/19. Supervising Physician Co-Signing Physician Notes Attending Attestation - Chart reviewed in detail, care plan d/w TARA Resendiz. I agree w/ the patricio components of her documentation. Patient to OR today for lap cholecystectomy 2nd to acute cholecystitis. Labs/vitals stable/acceptable. Will need surveillance for ascending aortic aneurysm post-d/c. Zachary Molina MD Subjective Pt. denies abd pain at rest, worse with palpation and movement. Denies nausea/vomiting. Has not had a BM since admission. Plan for lap alexia today. Family was present at bedside, updated regarding plan of care. Review of Systems Review of Systems: All systems reviewed & are unremarkable except as noted in HPI & below Constitutional: no fever, no chills, no fatigue, no weakness and no anorexia Respiratory: no cough, no dyspnea and no dyspnea on exertion Cardiovascular: no chest pain, no palpitations and no edema Gastrointestinal: + abdominal pain; no nausea, no vomiting, no constipation and no diarrhea/loose stools Genitourinary: no difficulty urinating Musculoskeletal: no back pain and no joint pain Integumentary: no non-healing lesions Allergy / Immunological: no rash Physical Exam Physical Exam: General: Resting comfortably in no apparent distress HEENT: NC/AT; PERRLA with EOMI; Stebbins conjunctiva, MMM. No erythema of posterior pharynx Neck: Supple and nontender Cardiac: RRR w/o murmurs, gallops or rubs Lungs: CTA bilaterally; No rhonchi, wheezing, or rales Abdomen: Bowel normoactive X 4; Tender to palpation over RUQ Extremities: Warm. No edema present Neuro: No focal weakness Skin: No rash Results & Data Vital Signs (Past 12 Hours) Vital Signs Temp Pulse Resp BP Pulse Ox 05/03/19 06:41 36.6 C 82 20 126/72 95 05/02/19 23:13 36.9 C 82 18 111/72 94 Laboratory Results 05/03/19 05/03/19 05/02/19 Range/Units 07:13 07:13 15:20 WBC 5.60 (4.8-10.8) K/uL RBC 4.18 L (4.2-5.4) M/uL Hgb 13.2 (12.0-16.0) g/dL Hct 39.7 (37-47) % MCV 95.0 (80-100) fL MCH 31.6 (25-34) pg MCHC 33.2 (32-36) g/dL RDW Std Deviation 46.1 (36.4-46.3) fL RDW Coeff of Cheri 13.2 (11.5-14.5) % Plt Count 163 (130-400) K/uL MPV 11.0 H (7.4-10.4) fL Immature Gran % (Auto) 0.0 % Neut % (Auto) 70.7 % Lymph % (Auto) 18.4 % [place] % (Auto) 9.8 % Eos % (Auto) 0.9 % Baso % (Auto) 0.2 % Immature Gran # (Auto) 0.00 (0.00-0.02) K/uL Neut # (Auto) 3.96 (1.4-6.5) K/uL Lymph # (Auto) 1.03 L (1.2-3.4) K/uL [place] # (Auto) 0.55 (0.11-0.59) K/uL Eos # (Auto) 0.05 (0-0.5) K/uL Baso # (Auto) 0.01 (0-0.2) K/uL PT 10.6 (9.0-12.0) Seconds INR 1.0 (0.9-1.1) Sodium 141 (136-145) mmol/L Potassium 3.3 L (3.5-5.1) mmol/L Chloride 109 H (98-107) mmol/L Carbon Dioxide 24 (21-32) mmol/L Anion Gap 9.0 (3-11) BUN 9 (7-18) mg/dl Creatinine 0.48 L (0.6-1.2) mg/dl Est Cr Clr Drug Dosing 73.6 ml/min Est GFR ( Amer) 102.2 Est GFR (Non-Af Amer) 88.2 BUN/Creatinine Ratio 19.5 (10-20) Glucose 85 (70-99) mg/dl Calcium 8.2 L (8.5-10.1) mg/dl Total Bilirubin (0.2-1) mg/dl AST (15-37) U/L ALT (12-78) U/L Alkaline Phosphatase (45-117) U/L Total Protein (6.4-8.2) gm/dl Albumin (3.4-5.0) gm/dl Globulin (2.5-4.0) gm/dl Albumin/Globulin Ratio (0.9-2) Lipase (73-393) U/L Urine Color Urine Appearance (Clear) Urine pH (4.5-7.5) Ur Specific [place] (1.000-1.030) Urine Protein (Negative) Urine Glucose (UA) (Negative) Urine Ketones (Negative) Urine Blood (Negative) Urine Nitrite (Negative) Urine Bilirubin (Negative) Urine Urobilinogen (Negative) Ur Leukocyte Esterase (Negative) Urine WBC (Auto) (0-5) /hpf Urine RBC (Auto) (0-4) /hpf U Hyaline Cast (Auto) (0-5) /lpf U Epithel Cells (Auto) (0-5) /lpf Urine Bacteria (Auto) (Negative) 05/02/19 05/02/19 05/02/19 Range/Units 15:20 15:10 15:10 WBC 7.23 (4.8-10.8) K/uL RBC 4.37 (4.2-5.4) M/uL Hgb 13.8 (12.0-16.0) g/dL Hct 41.2 (37-47) % MCV 94.3 (80-100) fL MCH 31.6 (25-34) pg MCHC 33.5 (32-36) g/dL RDW Std Deviation 46.0 (36.4-46.3) fL RDW Coeff of Cheri 13.3 (11.5-14.5) % Plt Count 161 (130-400) K/uL MPV 11.1 H (7.4-10.4) fL Immature Gran % (Auto) 0.1 % Neut % (Auto) 71.3 % Lymph % (Auto) 16.7 % [place] % (Auto) 11.2 % Eos % (Auto) 0.4 % Baso % (Auto) 0.3 % Immature Gran # (Auto) 0.01 (0.00-0.02) K/uL Neut # (Auto) 5.15 (1.4-6.5) K/uL Lymph # (Auto) 1.21 (1.2-3.4) K/uL [place] # (Auto) 0.81 H (0.11-0.59) K/uL Eos # (Auto) 0.03 (0-0.5) K/uL Baso # (Auto) 0.02 (0-0.2) K/uL PT (9.0-12.0) Seconds INR (0.9-1.1) Sodium 139 (136-145) mmol/L Potassium 3.7 (3.5-5.1) mmol/L Chloride 105 (98-107) mmol/L Carbon Dioxide 29 (21-32) mmol/L Anion Gap 5.0 (3-11) BUN 10 (7-18) mg/dl Creatinine 0.60 (0.6-1.2) mg/dl Est Cr Clr Drug Dosing 58.9 ml/min Est GFR ( Amer) 95.0 Est GFR (Non-Af Amer) 82.0 BUN/Creatinine Ratio 16.9 (10-20) Glucose 83 (70-99) mg/dl Calcium 8.5 (8.5-10.1) mg/dl Total Bilirubin 0.6 (0.2-1) mg/dl AST 8 L (15-37) U/L ALT 11 L (12-78) U/L Alkaline Phosphatase 51 (45-117) U/L Total Protein 7.0 (6.4-8.2) gm/dl Albumin 2.9 L (3.4-5.0) gm/dl Globulin 4.1 H (2.5-4.0) gm/dl Albumin/Globulin Ratio 0.7 L (0.9-2) Lipase 40 L (73-393) U/L Urine Color Yellow Urine Appearance Clear (Clear) Urine pH 6.0 (4.5-7.5) Ur Specific [place] 1.013 (1.000-1.030) Urine Protein Negative (Negative) Urine Glucose (UA) Negative (Negative) Urine Ketones Negative (Negative) Urine Blood Negative (Negative) Urine Nitrite Negative (Negative) Urine Bilirubin Negative (Negative) Urine Urobilinogen Negative (Negative) Ur Leukocyte Esterase 2+ H (Negative) Urine WBC (Auto) 1-5 (0-5) /hpf Urine RBC (Auto) 0-4 (0-4) /hpf U Hyaline Cast (Auto) 1-5 (0-5) /lpf U Epithel Cells (Auto) >30 H (0-5) /lpf Urine Bacteria (Auto) Negative (Negative) PG Care Time/CCT Total # of Minutes Spent Total Time Spent with Patient: Total time spent is greater than 50% in coordination of care (as documented) at patient's floor/unit and/or counseling patient: (1) Breast cancer Estrogen receptor status: positive Laterality: left Patient sex: female
[2019-05-03] MEDS ORDERED: CEFAZOLIN 2000MG 2,000 MG/15 ML SYR IV ONE (11:03)
--- NOTE | 2019-05-03 11:03 | History & Physical Bridge Note ---
Date of Service May 03, 2019 History & Physical Bridge Note I have examined the patient, reviewed the History & Physical and in the interval since the performance of the History & Physical I have noted the following changes of clinical significance: no changes noted
[2019-05-03] MEDS ORDERED: LIDOCAINE HCL 1% 20 ML VIAL ONE (11:11)
[2019-05-03] MEDS ORDERED: CONRAY 60% 50 ML VIAL ONE (11:11)
[2019-05-03] MEDS ORDERED: BACITRACIN OINT 15 GM TUBE ONE (11:11)
[2019-05-03] MEDS ORDERED: BUPIVACAINE 0.5 % 5 MG/1 ML MPF 30ML VIAL ONE (11:11)
[2019-05-03] MEDS ORDERED: ONDANSETRON INJ 2 MG/ML 2 ML VIAL IV PRN (11:22)
[2019-05-03] MEDS ORDERED: ePHEDrine sulfate 50 MG/ML AMP IV PRN (11:22)
[2019-05-03] MEDS ORDERED: fentaNYL citrate 100 MCG/2 ML VIAL IV PRN (11:22)
[2019-05-03] MEDS ORDERED: ATROPINE SULFATE 0.1 MG/ML 10ML SYR IV PRN (11:22)
[2019-05-03] MEDS ORDERED: CEFAZOLIN 250 MG/ML 1 GM VIAL ONE (11:58)
[2019-05-03] MEDS ORDERED: DEXAMETHASONE SOD INJ 4 MG/ML VIAL ONE (12:19)
[2019-05-03] MEDS ORDERED: ONDANSETRON INJ 2 MG/ML 2 ML VIAL ONE (12:20)
--- NOTE | 2019-05-03 13:25 | Post Operative Brief Note ---
Immediate Post Op Note v1 Date of Surgery May 03, 2019 Pre & Post Diagnosis Operation Date: 05/03/19 11:00 Pre-Op Diagnosis: ACUTE CHOLECYSTITIS Post-Op Diagnosis: ACUTE CHOLECYSTITIS Procedure Operation Date: 05/03/19 11:00 Actual Procedures p Laparoscopic Cholecystectomy(Not Applicable) - Refugio Gray MD Surgeon Refugio Gray MD Content Assistant TARA Dockery Estimated Blood Loss 30 Findings Consistent with Post-Op Diagnosis significant inflammation on gallbladder wall, Fluids 1400ml Specimens gallbladder Drains Diego-Taylor Drain (10 flat) Anesthesia Type General Complications none Disposition Accompanied Patient To Recovery: Yes Disposition: Recovery Room Overlapping Procedure I was immediately available: during the entire case.
--- NOTE | 2019-05-03 14:43 | Anesthesiology Progress Note ---
Date of Service May 03, 2019 Anesthesia Post Procedure Vital Signs Vital Signs: Temp Pulse Pulse Pulse Resp BP BP 05/03/19 14:35 36.2 C L 05/03/19 14:31 78 15 119/77 05/03/19 14:30 77 24 05/03/19 14:26 76 15 124/76 05/03/19 14:25 77 16 05/03/19 14:22 77 18 05/03/19 14:21 77 15 129/82 05/03/19 14:20 77 22 05/03/19 14:16 78 16 118/71 05/03/19 14:15 36.2 C L 79 17 05/03/19 14:12 79 17 05/03/19 14:11 78 16 129/80 05/03/19 14:10 78 18 05/03/19 14:06 79 18 133/78 05/03/19 14:05 79 16 05/03/19 14:01 79 18 136/92 05/03/19 14:00 80 21 05/03/19 13:56 82 19 123/92 05/03/19 13:55 82 21 05/03/19 13:51 82 18 125/77 05/03/19 13:50 82 19 05/03/19 13:46 36.0 C L 83 83 20 111/83 119/67 05/03/19 13:44 84 18 119/67 05/03/19 11:11 36.7 C 79 20 124/75 05/03/19 06:41 36.6 C 82 20 126/72 05/02/19 23:13 36.9 C 82 18 111/72 05/02/19 16:50 37 C 85 17 143/84 H 05/02/19 16:12 84 20 05/02/19 15:58 82 20 131/73 Pulse Ox 05/03/19 14:35 96 05/03/19 14:31 97 05/03/19 14:30 96 05/03/19 14:26 97 05/03/19 14:25 97 05/03/19 14:22 97 05/03/19 14:21 99 05/03/19 14:20 98 05/03/19 14:16 96 05/03/19 14:15 96 05/03/19 14:12 97 05/03/19 14:11 97 05/03/19 14:10 98 05/03/19 14:06 96 05/03/19 14:05 97 05/03/19 14:01 97 05/03/19 14:00 95 05/03/19 13:56 96 05/03/19 13:55 95 05/03/19 13:51 94 05/03/19 13:50 100 05/03/19 13:46 98 05/03/19 13:44 97 05/03/19 11:11 95 05/03/19 06:41 95 05/02/19 23:13 94 05/02/19 16:50 97 05/02/19 16:12 95 05/02/19 15:58 94 Pain Intensity Right Upper Abdomen: Pain Intensity: 8 Abdomen: Pain Intensity: 0 Transfer of Care Handoff Completed per policy Notes Mental Status: alert / awake / arousable Patient Amnestic to Procedure: Yes Nausea / Vomiting: adequately controlled Pain: adequately controlled Airway Patency, RR, SpO2: stable & adequate BP & HR: stable & adequate Hydration State: stable & adequate Anesthetic Complications: no major complications apparent Notes: No sore throat, dysphagia, or hoarseness noted from difficult airway management.
[2019-05-03] MEDS ORDERED: NON-FORMULARY MEDICATION (Amoxicillin 2,000 MG) PO SCH (14:48)
[2019-05-03] MEDS ORDERED: TRAMADOL HCL 50 MG TABLET PO PRN (14:48)
[2019-05-03] MEDS: LATANOPROST 0.005% OP SOLN 2.5 ML BTL OPR SCH (21:27)
--- NOTE | 2019-05-03 23:52 | Operative Report ---
DATE OF OPERATION: 05/03/2019 PREOPERATIVE DIAGNOSIS: Acute cholecystitis, cholelithiasis. POSTOPERATIVE DIAGNOSIS: Acute cholecystitis, cholelithiasis. PROCEDURE: Laparoscopic cholecystectomy. SURGEON: Refugio Gray MD ANESTHESIA: General. DOCUMENTATION CONSULTANT: Ashlie Mcintyre PA-C ESTIMATED BLOOD LOSS: About 30. FINDINGS: Significant inflammation on the gallbladder wall, gallbladder wall thickening, edema. COMPLICATIONS: None. INDICATIONS FOR THE PROCEDURE: This is an 88-year-old female who presented with upper quadrant pain. The patient had a CT scan diagnosis of acute cholecystitis with cholelithiasis. The patient will be required to do laparoscopic cholecystectomy, possible open, possible cholangiogram. I did talk to the patient and patient's son about the benefits, risks, alternate procedures. I indicated the risks may include but not limited such as bleeding, infection, injury to common bile duct, injury to bowel, myocardial infarction, DVT, stroke and even . They understand. She signed informed consent and I answered all questions. DETAILS OF PROCEDURE: We brought in the patient to the OR, put the patient in the supine position. The patient received SCDs on bilateral legs to prevent DVT. Also the patient received 2 grams Ancef IV for prophylactic antibiotic. The patient received general anesthesia, had a difficult airway and finally patient got her intubation successfully. The abdomen was prepped and draped in routine sterile fashion. After timeout, we injected local anesthesia by using 1% lidocaine mixed with 0.5% Marcaine just above umbilical. Now we made a small incision just above umbilicus, opened fascia and opened peritoneum under direct vision, put a Weston trocar in, connected to CO2 to create pneumoperitoneum. Flow rate is 6 liter per minute. Pressure not more than 14 mmHg. Once we got a nice pneumoperitoneum, we put the camera in, looked around the abdomen, it showed normal finding on the liver. However, the gallbladder had significant inflammation, enlarged, the size of 10 x 6 cm distention in gallbladder, gallbladder wall thickening, edema, significant inflammation on the gallbladder wall. Confirmed diagnosis of acute cholecystitis. Then, I put another two 5 mm trocars on the right upper quadrant, one 12 trocar on the epigastric area. Once all trocars in, we put a grasper to hold the base of the gallbladder. Based on the patient having significant distention on the gallbladder, we had to use a large needle to decompress the gallbladder first. Then we used the grasper to hold the base of the gallbladder, put direction to the diaphragm and another grasper to hold the pouch of gallbladder, put the latter to expose the triangle of [place]ot. The cystic duct was identified and mobilized. Then I put two 10 mm metal clips on the proximal cystic duct, one on the distal cystic duct. I then used scissors for transection of the cystic duct. Rechecked, no bile leak, no active bleeding. The cystic artery was identified and mobilized. I put two 5 mm clips on the proximal cystic artery, one on the distal cystic duct artery. We used scissors for transection of cystic artery. Rechecked, no active bleeding. Then we used the Bovie to take down gallbladder from the liver bed. Rechecked, no active bleeding, no bile leak. Then we removed the gallbladder through the catch bag. Then we reinserted Weston trocar in and connected to CO2 to create pneumoperitoneum. Again looked around the abdomen, no active bleeding, no bile leak from the liver bed. Based on patient having significant inflammation on the gallbladder fossa and significant edema, we decided to put one 10 mm PASTOR drainage in and there was one 5 mm incision. Then we used 0 nylon to fix the PASTOR drain on the skin. Then we removed all trocar under direct vision. No active bleeding from the trocar sites. Pneumoperitoneum was released. Then I closed the umbilical incision, fascial layer by using #1 Vicryl [id number] x3, closed subcutaneous layer by using 2-0 Vicryl interrupted, and closed skin by using 4-0 Vicryl continuous running. Closed the epigastrium incision, closed the fascial layer by using #1 Vicryl [id number] x2, closed subcutaneous layer by using 2-0 Vicryl interruptedly, closed skin by using 4-0 Vicryl interruptedly, closed another two 5 mm trocar sites skin only by using 4-0 Vicryl. Then we put the dressing on. The patient tolerated the procedure well. All instrument, needle, sponge count were correct x2 at the end of case. The patient was transferred to recovery room in stable condition. After the procedure, I did talk to the patient and family member about OR finding and procedure we did. Also, I gave them postop care instructions. The gallbladder specimen was sent to pathology. I attest to the content of the Intraoperative Record and any orders documented therein. Any exceptions are noted below. MTDD
[2019-05-04] MEDS: COMBIGAN~ORDER AWAITING ACTION SCH ×4 (00:39→23:32)
[2019-05-04] MEDS: LEVOTHYROXINE SODIUM 88 MCG TABLET PO SCH (05:34)
[2019-05-04] MEDS: SODIUM CHLORIDE 0.9% 1000ML 1,000 ML IV SCH (05:44)
[2019-05-04 07:14] LABS: Basophils # (auto) 0.01 K/uL (0-0.2); Basophils % (auto) 0.2 %; Hematocrit (blood only) 34.3 % (37-47); Hemoglobin 11.3 g/dL (12.0-16.0); Immature Granulocytes # (auto) 0.01 K/uL (0.00-0.02); Immature Granulocytes % (auto) 0.2 %; Lymphocytes # (auto) 0.99 K/uL (1.2-3.4); Lymphocytes % (auto) 16.9 %; Mean Corpuscular Hgb Conc 32.9 g/dL (32-36); Mean Corpuscular Volume 94.5 fL (80-100); Mean Platelet Volume 10.6 fL (7.4-10.4); Monocytes # (auto) 0.73 K/uL (0.11-0.59); Monocytes % (auto) 12.5 %; Neutrophils # (auto) 4.11 K/uL (1.4-6.5); Neutrophils % (auto) 70.2 %; Platelet Count 178 K/uL (130-400); RDW Coefficient of Variation 13.4 % (11.5-14.5); RDW Standard Deviation 46.8 fL (36.4-46.3); Red Blood Count 3.63 M/uL (4.2-5.4); White Blood Count 5.85 K/uL (4.8-10.8)
[2019-05-04 07:45] LABS: Alanine Aminotransferase 17 U/L (12-78); Aspartate Aminotransferase 20 U/L (15-37); BUN Creatinine Ratio 22.1 (10-20); Bilirubin Direct < 0.1 mg/dl (0-0.2); Blood Urea Nitrogen 11 mg/dl (7-18); Calcium 7.3 mg/dl (8.5-10.1); Carbon Dioxide 23 mmol/L (21-32); Chloride 114 mmol/L (98-107); Creatinine Clr Calc Pharmacy 72.1 ml/min; Est GFR (African American) 101.5; Est GFR (Non-African American) 87.6; Glucose 93 mg/dl (70-99); Magnesium 1.9 mg/dl (1.8-2.4); Potassium 3.7 mmol/L (3.5-5.1); Sodium 144 mmol/L (136-145)
[2019-05-04 08:08] LABS: Alkaline Phosphatase 42 U/L (45-117); Bilirubin,Total 0.3 mg/dl (0.2-1); Total Protein 5.1 gm/dl (6.4-8.2)
[2019-05-04] MEDS: CALCIUM 600MG + VIT D 400 IU TAB PO SCH (08:59)
[2019-05-04] MEDS: ASPIRIN 325 MG ECTAB PO SCH (08:59)
[2019-05-04] MEDS: LISINOPRIL 5 MG TAB PO SCH (08:59)
[2019-05-04] MEDS: TAMOXIFEN CITRATE 10 MG TABLET PO SCH (09:00)
[2019-05-04] MEDS: PANTOprazole 40 MG TAB PO SCH (09:00)
[2019-05-04] MEDS: CHOLECALCIFEROL 1,000 UNITS TAB PO SCH (09:00)
[2019-05-04] MEDS: MULTIVITAMIN TAB PO SCH (09:00)
[2019-05-04] MEDS: PILOCARPINE HCL 1% OP SOLN 15 ML BTL OP SCH ×4 (09:00→21:09)
[2019-05-04] MEDS: ACETAMINOPHEN 500 MG TAB PO SCH (09:01)
[2019-05-04] MEDS: SODIUM CHLORIDE 0.45 % 1,000 ML IV SCH ×2 (09:03→19:23)
[2019-05-04] MEDS ORDERED: DOCUSATE SODIUM/SENNA 50/8.6MG TAB PO ONE (10:30)
--- NOTE | 2019-05-04 10:36 | Anesthesiology Progress Note ---
Date of Service May 04, 2019 Anesthesia Post Procedure Vital Signs Vital Signs: Temp Pulse Pulse Pulse Resp BP BP 05/04/19 07:22 36.3 C L 80 16 05/04/19 03:56 36.5 C 80 18 98/65 L 05/03/19 23:04 36.6 C 80 18 105/69 05/03/19 19:30 36.6 C 87 16 05/03/19 17:48 36.5 C 92 H 17 05/03/19 16:50 82 17 05/03/19 15:48 36.4 C L 81 17 05/03/19 15:12 36.6 C 76 17 05/03/19 14:45 36.4 C L 78 18 05/03/19 14:35 36.2 C L 05/03/19 14:31 78 15 119/77 05/03/19 14:30 77 24 05/03/19 14:26 76 15 124/76 05/03/19 14:25 77 16 05/03/19 14:22 77 18 05/03/19 14:21 77 15 129/82 05/03/19 14:20 77 22 05/03/19 14:16 78 16 118/71 05/03/19 14:15 36.2 C L 79 17 05/03/19 14:12 79 17 05/03/19 14:11 78 16 129/80 05/03/19 14:10 78 18 05/03/19 14:06 79 18 133/78 05/03/19 14:05 79 16 05/03/19 14:01 79 18 136/92 05/03/19 14:00 80 21 05/03/19 13:56 82 19 123/92 05/03/19 13:55 82 21 05/03/19 13:51 82 18 125/77 05/03/19 13:50 82 19 05/03/19 13:46 36.0 C L 83 83 20 111/83 05/03/19 13:44 84 18 119/67 05/03/19 11:11 36.7 C 79 20 BP Pulse Ox 05/04/19 07:22 97/59 L 94 05/04/19 03:56 91 05/03/19 23:04 93 05/03/19 19:30 114/76 95 05/03/19 17:48 116/76 93 05/03/19 16:50 105/66 94 05/03/19 15:48 106/69 92 05/03/19 15:12 115/78 96 05/03/19 14:45 116/75 96 05/03/19 14:35 96 05/03/19 14:31 97 05/03/19 14:30 96 05/03/19 14:26 97 05/03/19 14:25 97 05/03/19 14:22 97 05/03/19 14:21 99 05/03/19 14:20 98 05/03/19 14:16 96 05/03/19 14:15 96 05/03/19 14:12 97 05/03/19 14:11 97 05/03/19 14:10 98 05/03/19 14:06 96 05/03/19 14:05 97 05/03/19 14:01 97 05/03/19 14:00 95 05/03/19 13:56 96 05/03/19 13:55 95 05/03/19 13:51 94 05/03/19 13:50 100 05/03/19 13:46 119/67 98 05/03/19 13:44 97 05/03/19 11:11 124/75 95 Pain Intensity Right Upper Abdomen: Pain Intensity: 0 Abdomen: Pain Intensity: 0 Notes Mental Status: alert / awake / arousable and participated in evaluation Patient Amnestic to Procedure: Yes Nausea / Vomiting: adequately controlled Pain: adequately controlled Airway Patency, RR, SpO2: stable & adequate BP & HR: stable & adequate Hydration State: stable & adequate Anesthetic Complications: no major complications apparent
--- NOTE | 2019-05-04 11:18 | Surgery Progress Note ---
Date of Service May 04, 2019 Assessment & Plan (1) Acute cholecystitis: POD # 1 s/p lap alexia -vitals stable, afebrile - minimal post op pain - no leukocytosis - t. bili , lfts wnl - urinary retention, required straight cath last night Plan: Okay from surgical standpoint for discharge Given urinary retention and low urine amount on bladder scan this morning, continue IV fluids and monitor I/O's continue tylenol prn pain discharge instructions reviewed will go home with blanca drain, blanca drain teaching f/u surgery office [address] hill given age would not send home with narcotic pain well controlled with Tylenol Dr. Golden covering this weekend Dr. Hill has seen and examined pt, agrees with above Subjective Feeling good, ready to go home required straight catheter last night as unable to urinate drinking alot of fluids now tolerated breakfast, no n/v passing gas minimal post op pain when moving and sitting up in bed, took Tylenol last night Physical Exam Constitutional: WD/WN, vitals as above no acute distress Respiratory: normal respiratory effort; no respiratory distress Gastrointestinal (Abdomen): Inspection/Auscultation: + abdominal surgical drain present (serosanguineous); abdomen not distended Percussion/Palpation: + abdomen tender (at incisions and drain site) and abdomen soft; no guarding and abdomen not rigid Skin: no rashes, warm and dry + incision (Covered with dressings, dry, mild spotting) Psychiatric: A+Ox3, euthymic affect Results & Data Vital Signs (Past 12 Hours) Vital Signs Temp Pulse Resp BP BP Pulse Ox 05/04/19 07:22 36.3 C L 80 16 97/59 L 94 05/04/19 03:56 36.5 C 80 18 98/65 L 91 Laboratory Results 05/04/19 05/04/19 Range/Units 06:54 06:54 WBC 5.85 (4.8-10.8) K/uL RBC 3.63 L (4.2-5.4) M/uL Hgb 11.3 L (12.0-16.0) g/dL Hct 34.3 L (37-47) % MCV 94.5 (80-100) fL MCH 31.1 (25-34) pg MCHC 32.9 (32-36) g/dL RDW Std Deviation 46.8 H (36.4-46.3) fL RDW Coeff of Cheri 13.4 (11.5-14.5) % Plt Count 178 (130-400) K/uL MPV 10.6 H (7.4-10.4) fL Immature Gran % (Auto) 0.2 % Neut % (Auto) 70.2 % Lymph % (Auto) 16.9 % [place] % (Auto) 12.5 % Eos % (Auto) 0.0 % Baso % (Auto) 0.2 % Immature Gran # (Auto) 0.01 (0.00-0.02) K/uL Neut # (Auto) 4.11 (1.4-6.5) K/uL Lymph # (Auto) 0.99 L (1.2-3.4) K/uL [place] # (Auto) 0.73 H (0.11-0.59) K/uL Eos # (Auto) 0.00 (0-0.5) K/uL Baso # (Auto) 0.01 (0-0.2) K/uL Sodium 144 (136-145) mmol/L Potassium 3.7 (3.5-5.1) mmol/L Chloride 114 H (98-107) mmol/L Carbon Dioxide 23 (21-32) mmol/L Anion Gap 7.0 (3-11) BUN 11 (7-18) mg/dl Creatinine 0.49 L (0.6-1.2) mg/dl Est Cr Clr Drug Dosing 72.1 ml/min Est GFR ( Amer) 101.5 Est GFR (Non-Af Amer) 87.6 BUN/Creatinine Ratio 22.1 H (10-20) Glucose 93 (70-99) mg/dl Calcium 7.3 L (8.5-10.1) mg/dl Magnesium 1.9 (1.8-2.4) mg/dl Total Bilirubin 0.3 (0.2-1) mg/dl Direct Bilirubin < 0.1 (0-0.2) mg/dl AST 20 (15-37) U/L ALT 17 (12-78) U/L Alkaline Phosphatase 42 L (45-117) U/L Total Protein 5.1 L D (6.4-8.2) gm/dl Albumin 2.0 L (3.4-5.0) gm/dl TSH 2.840 (0.300-4.500) uIu/ml
--- NOTE | 2019-05-04 12:13 | Hospitalist Progress Note ---
Date of Service May 04, 2019 Assessment & Plan (1) Acute cholecystitis: - Noted on CT A/P at admission after presenting with abdominal pain. - General surgery consulted, s/p lap alexia on 05/03 POD#1. - Regular diet as tolerated; IV fluids at 100 cc/hr. - Tylenol and Tramadol prn pain; Zofran prn N/V. (2) Oliguria: - Required straight cath overnight for 600 cc; bladder scanned for 26 cc this morning, voided ~10 cc. - Will continue IV fluids at 100 cc/hr - changed to 0.45% NS due to hyperchloremia. Will also give 500 cc bolus for hypotension. - Monitor strict I/Os -- will place quiñones for urinary retention. - U/a pending collection to evaluate for cast cells. - Repeat BMP at 3 pm to monitor renal function. (3) Hypothyroidism: - Continue Synthroid 88 mcg daily. - TSH was 2.840. (4) Hypertension: - Continue Lisinopril 5 mg daily. (5) History of DVT (deep vein thrombosis): - Previously treated with Warfarin; on Aspirin 325 mg daily at home, now resumed. - Resumed heparin ppx. - High risk for DVT due to maligancy/hypercoaguable state - encouraged frequent ambulation. (6) Breast cancer: - H/o -- continue Tamoxifen as prescribed. (7) GERD (gastroesophageal reflux disease): - PPI daily. (8) Electrolyte abnormality: - No replacement required today. (9) DVT prophylaxis: - Resumed Heparin ppx. Dispo: Med/surg for treatment of acute cholecystitis; discharge pending improvement in oliguria/retention. Supervising Physician Co-Signing Physician Notes Attending Attestation - Chart reviewed in detail, care plan d/w TARA Resendiz. I agree w/ the patricio components of her documentation. POD #1 s/p lap cholecystectomy 2nd to acute cholecystitis. Has had urinary retention and oliguria s/p I/O cath overnight. Agree with repeat BMP today to ensure stable creatinine. Zachary Molina MD Subjective Pt. has abd discomfort, well controlled. She is passing gas, has not had a BM in 24 hours. Denies N/V. She required straight cath around midnight for retention, had 600 cc. Voided ~10 CC this morning, bladder scanned for ~26 cc. Pt. does not have urge to void, is not producing urine. Renal function was stable on labs. Will continue IV fluids and monitor I/Os closely throughout day. Consider quiñonse placement for strict monitoring. Review of Systems Review of Systems: All systems reviewed & are unremarkable except as noted in HPI & below Constitutional: no fever, no chills, no fatigue, no weakness and no anorexia Respiratory: no cough, no dyspnea, no dyspnea on exertion and no wheezing Cardiovascular: no chest pain, no palpitations and no edema Gastrointestinal: + abdominal pain; no nausea, no vomiting, no constipation and no diarrhea/loose stools Genitourinary: + difficulty urinating, + urinary hesitancy and + decreased urination Musculoskeletal: no back pain and no joint pain Allergy / Immunological: no rash Physical Exam Physical Exam: General: Resting comfortably in no apparent distress HEENT: NC/AT; PERRLA with EOMI; [place] conjunctiva, MMM. No erythema of posterior pharynx Neck: Supple and nontender Cardiac: RRR Lungs: CTA bilaterally; No rhonchi, wheezing, or rales Abdomen: Bowel normoactive X 4; nontender to light palpation Extremities: Warm. No edema present Neuro: No focal weakness Skin: No rash Results & Data Vital Signs (Past 12 Hours) Vital Signs Temp Pulse Resp BP BP Pulse Ox 05/04/19 07:22 36.3 C L 80 16 97/59 L 94 05/04/19 03:56 36.5 C 80 18 98/65 L 91 Laboratory Results 05/04/19 05/04/19 Range/Units 06:54 06:54 WBC 5.85 (4.8-10.8) K/uL RBC 3.63 L (4.2-5.4) M/uL Hgb 11.3 L (12.0-16.0) g/dL Hct 34.3 L (37-47) % MCV 94.5 (80-100) fL MCH 31.1 (25-34) pg MCHC 32.9 (32-36) g/dL RDW Std Deviation 46.8 H (36.4-46.3) fL RDW Coeff of Cheri 13.4 (11.5-14.5) % Plt Count 178 (130-400) K/uL MPV 10.6 H (7.4-10.4) fL Immature Gran % (Auto) 0.2 % Neut % (Auto) 70.2 % Lymph % (Auto) 16.9 % [place] % (Auto) 12.5 % Eos % (Auto) 0.0 % Baso % (Auto) 0.2 % Immature Gran # (Auto) 0.01 (0.00-0.02) K/uL Neut # (Auto) 4.11 (1.4-6.5) K/uL Lymph # (Auto) 0.99 L (1.2-3.4) K/uL [place] # (Auto) 0.73 H (0.11-0.59) K/uL Eos # (Auto) 0.00 (0-0.5) K/uL Baso # (Auto) 0.01 (0-0.2) K/uL Sodium 144 (136-145) mmol/L Potassium 3.7 (3.5-5.1) mmol/L Chloride 114 H (98-107) mmol/L Carbon Dioxide 23 (21-32) mmol/L Anion Gap 7.0 (3-11) BUN 11 (7-18) mg/dl Creatinine 0.49 L (0.6-1.2) mg/dl Est Cr Clr Drug Dosing 72.1 ml/min Est GFR ( Amer) 101.5 Est GFR (Non-Af Amer) 87.6 BUN/Creatinine Ratio 22.1 H (10-20) Glucose 93 (70-99) mg/dl Calcium 7.3 L (8.5-10.1) mg/dl Magnesium 1.9 (1.8-2.4) mg/dl Total Bilirubin 0.3 (0.2-1) mg/dl Direct Bilirubin < 0.1 (0-0.2) mg/dl AST 20 (15-37) U/L ALT 17 (12-78) U/L Alkaline Phosphatase 42 L (45-117) U/L Total Protein 5.1 L D (6.4-8.2) gm/dl Albumin 2.0 L (3.4-5.0) gm/dl TSH 2.840 (0.300-4.500) uIu/ml PG Care Time/CCT Total # of Minutes Spent Total Time Spent with Patient: Total time spent is greater than 50% in coordination of care (as documented) at patient's floor/unit and/or counseling patient: (1) Breast cancer Estrogen receptor status: positive Laterality: left Patient sex: female
[2019-05-04] MEDS ORDERED: SODIUM CHLORIDE 0.9% 1000ML 500 ML IV ONE (13:59)
[2019-05-04 15:18] LABS: Appearance Urine Clear (Clear); Bilirubin Urine Negative (Negative); Blood Urine Negative (Negative); Color Urine Dark Yellow; Glucose Urine UA Negative (Negative); Ketones Urine Trace (Negative); Leukocyte Esterase Urine Negative (Negative); Nitrite Urine Negative (Negative); Protein Urine Negative (Negative); Specific Gravity Urine 1.018 (1.000-1.030); Urobilinogen Urine Negative (Negative)
[2019-05-04 15:29] LABS: BUN Creatinine Ratio 16.6 (10-20); Calcium 7.5 mg/dl (8.5-10.1); Creatinine Clr Calc Pharmacy 53.5 ml/min; Est GFR (African American) 92.1; Est GFR (Non-African American) 79.4; Potassium 3.7 mmol/L (3.5-5.1)
[2019-05-04] MEDS: HEPARIN SOD 5,000 UNIT/0.5 ML VIAL SQ SCH (21:09)
[2019-05-04] MEDS: DOCUSATE SODIUM/SENNA 50/8.6MG TAB PO SCH (21:10)
[2019-05-04] MEDS: LATANOPROST 0.005% OP SOLN 2.5 ML BTL OPR SCH (21:10)
[2019-05-05] MEDS: SODIUM CHLORIDE 0.45 % 1,000 ML IV SCH ×2 (02:01→11:51)
[2019-05-05] MEDS: LEVOTHYROXINE SODIUM 88 MCG TABLET PO SCH (05:53)
[2019-05-05 07:33] LABS: Basophils # (auto) 0.01 K/uL (0-0.2); Basophils % (auto) 0.2 %; Eosinophils # (auto) 0.15 K/uL (0-0.5); Eosinophils % (auto) 3.6 %; Hematocrit (blood only) 36.6 % (37-47); Hemoglobin 12.1 g/dL (12.0-16.0); Lymphocytes # (auto) 0.92 K/uL (1.2-3.4); Mean Corpuscular Hgb Conc 33.1 g/dL (32-36); Mean Corpuscular Volume 95.1 fL (80-100); Mean Platelet Volume 10.6 fL (7.4-10.4); Monocytes # (auto) 0.36 K/uL (0.11-0.59); Monocytes % (auto) 8.6 %; Neutrophils # (auto) 2.74 K/uL (1.4-6.5); Neutrophils % (auto) 65.6 %; Platelet Count 180 K/uL (130-400); RDW Coefficient of Variation 13.3 % (11.5-14.5); RDW Standard Deviation 46.5 fL (36.4-46.3); Red Blood Count 3.85 M/uL (4.2-5.4); White Blood Count 4.18 K/uL (4.8-10.8)
[2019-05-05 08:16] LABS: BUN Creatinine Ratio 13.8 (10-20); Calcium 8.1 mg/dl (8.5-10.1); Est GFR (African American) 96.6; Est GFR (Non-African American) 83.4; Magnesium 1.9 mg/dl (1.8-2.4); Potassium 4.1 mmol/L (3.5-5.1)
[2019-05-05] MEDS: PANTOprazole 40 MG TAB PO SCH (08:52)
[2019-05-05] MEDS: COMBIGAN~ORDER AWAITING ACTION SCH ×3 (08:52→23:10)
[2019-05-05] MEDS: CHOLECALCIFEROL 1,000 UNITS TAB PO SCH (08:52)
[2019-05-05] MEDS: HEPARIN SOD 5,000 UNIT/0.5 ML VIAL SQ SCH ×2 (08:52→20:29)
[2019-05-05] MEDS: CALCIUM 600MG + VIT D 400 IU TAB PO SCH (08:53)
[2019-05-05] MEDS: ASPIRIN 325 MG ECTAB PO SCH (08:53)
[2019-05-05] MEDS: TAMOXIFEN CITRATE 10 MG TABLET PO SCH (08:53)
[2019-05-05] MEDS: LISINOPRIL 5 MG TAB PO SCH (08:53)
[2019-05-05] MEDS: DOCUSATE SODIUM/SENNA 50/8.6MG TAB PO SCH ×2 (08:53→20:28)
[2019-05-05] MEDS: MULTIVITAMIN TAB PO SCH (08:54)
[2019-05-05] MEDS: PILOCARPINE HCL 1% OP SOLN 15 ML BTL OP SCH ×4 (08:54→20:27)
[2019-05-05] MEDS: ACETAMINOPHEN 500 MG TAB PO SCH (08:55)
--- NOTE | 2019-05-05 10:02 | Surgery Progress Note ---
Date of Service May 05, 2019 Assessment & Plan (1) Acute cholecystitis: pod 3 doing well from surgery trena diet quiñones in place for urinary retention...ok for d/c home when ok with primary service. Subjective feeling well other than would like to go home. Physical Exam Physical Exam: alert. nad abd: soft. expected incisional tenderness. wounds look good. Results & Data Vital Signs (Past 12 Hours) Vital Signs Temp Pulse Resp BP Pulse Ox 05/05/19 07:26 36.9 C 66 16 111/64 96 05/04/19 22:54 36.3 C L 61 16 94/55 L 95
--- NOTE | 2019-05-05 12:00 | XRay Report ---
KUB CLINICAL HISTORY: Rule out obstruction COMPARISON STUDY: CT of the abdomen and pelvis May 02, 2019. FINDINGS: A densely calcified 7.8 cm splenic lesion is likely benign. Bilateral hip arthroplasties ar e partially imaged. The patient is status post cholecystectomy. Operative bed drain is in place. Ther e is oral contrast within portions of the colon from prior CT. There is moderate gaseous distention o f the sigmoid colon. There is no evidence for a small bowel obstruction. Abdominal gas is from recent procedure. A moderate amount of stool within the colon is noted. IMPRESSION: Moderate gaseous distention of the sigmoid colon. An ileus is favored. A sigmoid volvulus could appea r similar although is considered less likely. Electronically signed by: Jean Pierre Stone M.D. 05/05/2019 11:58 AM
--- NOTE | 2019-05-05 13:14 | Hospitalist Progress Note ---
Date of Service May 05, 2019 Assessment & Plan (1) Acute cholecystitis: - Noted on CT A/P at admission after presenting with abdominal pain. - General surgery consulted, s/p lap alexia on 05/03 POD#2. - CLD, advance as tolerated in setting of ileus; IV fluids at 80 cc/hr. - Zofran prn N/V. (2) Ileus: - Noted on KUB this morning -- also slight concern for sigmoid volvulus. Pt. had a large BM following imaging. - CLD, advance as tolerated; IV fluids at 80 cc/hr. - Resume PO meds. (3) Oliguria: - Adequate urine output over last 24 hours; continue IV fluids. - Monitor strict I/Os; removed quiñones -- > voided large amount. - U/a negative for cast cells. Renal function has been stable. (4) Hypothyroidism: - Continue Synthroid. - TSH was 2.840. (5) Hypertension: - Continue Lisinopril 5 mg daily. (6) History of DVT (deep vein thrombosis): - Previously treated with Warfarin; on Aspirin 325 mg daily at home, now resumed. - Heparin ppx BID. - High risk for DVT due to malignancy/hypercoaguable state - encouraged frequent ambulation. (7) Breast cancer: - H/o -- continue Tamoxifen as prescribed. (8) GERD (gastroesophageal reflux disease): - Protonix daily. (9) Electrolyte abnormality: - No replacement required. (10) DVT prophylaxis: - Heparin ppx BID. Dispo: Med/surg for treatment of acute cholecystitis; discharge pending resolution of ileus, likely on 05/06/19. (11) Ascending aortic aneurysm: Supervising Physician Co-Signing Physician Notes Attending Attestation - Chart reviewed in detail, care plan d/w TARA Resendiz. I agree w/ the patricio components of her documentation. POD #2 s/p lap cholecystectomy 2nd to acute cholecystitis. Urinary retention and oliguria resolved. Stable creatinine and other labs. Expected post-op ileus resolved -- had bowel movement today. Diet per gen surg. Zachary Molina MD Subjective Pt. is stable overall - denies significant abd pain. She is not passing gas, has not had a BM. KUB showed ileus -- will make NPO and hold PO meds. Denies N/V, chest pain, SOB. Will monitor over next 24 hours. Review of Systems Review of Systems: All systems reviewed & are unremarkable except as noted in HPI & below Constitutional: no fever, no chills, no fatigue, no weakness and no anorexia Respiratory: no cough, no dyspnea, no dyspnea on exertion and no wheezing Cardiovascular: no chest pain, no palpitations, no lightheadedness and no edema Gastrointestinal: + abdominal pain and + constipation; no nausea, no vomiting and no diarrhea/loose stools Genitourinary: no difficulty urinating Musculoskeletal: no back pain and no joint pain Integumentary: no non-healing lesions Allergy / Immunological: no rash Physical Exam Physical Exam: General: Resting comfortably in no apparent distress HEENT: NC/AT; PERRLA with EOMI; [place] conjunctiva, MMM. No erythema of posterior pharynx Neck: Supple and nontender Cardiac: RRR Lungs: CTA bilaterally; No rhonchi, wheezing, or rales Abdomen: Bowel normoactive X 4; nontender to light palpation Extremities: Warm. No edema present Neuro: No focal weakness Skin: No rash Results & Data Vital Signs (Past 12 Hours) Vital Signs Temp Pulse Resp BP Pulse Ox 05/05/19 07:26 36.9 C 66 16 111/64 96 Laboratory Results 05/05/19 05/05/19 05/04/19 Range/Units 07:12 07:12 14:51 WBC 4.18 L (4.8-10.8) K/uL RBC 3.85 L (4.2-5.4) M/uL Hgb 12.1 (12.0-16.0) g/dL Hct 36.6 L (37-47) % MCV 95.1 (80-100) fL MCH 31.4 (25-34) pg MCHC 33.1 (32-36) g/dL RDW Std Deviation 46.5 H (36.4-46.3) fL RDW Coeff of Cheri 13.3 (11.5-14.5) % Plt Count 180 (130-400) K/uL MPV 10.6 H (7.4-10.4) fL Immature Gran % (Auto) 0.0 % Neut % (Auto) 65.6 % Lymph % (Auto) 22.0 % [place] % (Auto) 8.6 % Eos % (Auto) 3.6 % Baso % (Auto) 0.2 % Immature Gran # (Auto) 0.00 (0.00-0.02) K/uL Neut # (Auto) 2.74 (1.4-6.5) K/uL Lymph # (Auto) 0.92 L (1.2-3.4) K/uL [place]da # (Auto) 0.36 (0.11-0.59) K/uL Eos # (Auto) 0.15 (0-0.5) K/uL Baso # (Auto) 0.01 (0-0.2) K/uL Sodium 140 140 (136-145) mmol/L Potassium 4.1 3.7 (3.5-5.1) mmol/L Chloride 110 H 108 H (98-107) mmol/L Carbon Dioxide 23 25 (21-32) mmol/L Anion Gap 7.0 7.0 (3-11) BUN 8 11 (7-18) mg/dl Creatinine 0.57 L 0.66 (0.6-1.2) mg/dl Est Cr Clr Drug Dosing 62.0 53.5 ml/min Est GFR ( Amer) 96.6 92.1 Est GFR (Non-Af Amer) 83.4 79.4 BUN/Creatinine Ratio 13.8 16.6 (10-20) Glucose 92 111 H (70-99) mg/dl Calcium 8.1 L 7.5 L (8.5-10.1) mg/dl Magnesium 1.9 (1.8-2.4) mg/dl Urine Color Urine Appearance (Clear) Urine pH (4.5-7.5) Ur Specific [place] (1.000-1.030) Urine Protein (Negative) Urine Glucose (UA) (Negative) Urine Ketones (Negative) Urine Blood (Negative) Urine Nitrite (Negative) Urine Bilirubin (Negative) Urine Urobilinogen (Negative) Ur Leukocyte Esterase (Negative) 05/04/19 Range/Units 14:45 WBC (4.8-10.8) K/uL RBC (4.2-5.4) M/uL Hgb (12.0-16.0) g/dL Hct (37-47) % MCV (80-100) fL MCH (25-34) pg MCHC (32-36) g/dL RDW Std Deviation (36.4-46.3) fL RDW Coeff of Cheri (11.5-14.5) % Plt Count (130-400) K/uL MPV (7.4-10.4) fL Immature Gran % (Auto) % Neut % (Auto) % Lymph % (Auto) % [place] % (Auto) % Eos % (Auto) % Baso % (Auto) % Immature Gran # (Auto) (0.00-0.02) K/uL Neut # (Auto) (1.4-6.5) K/uL Lymph # (Auto) (1.2-3.4) K/uL [place]da # (Auto) (0.11-0.59) K/uL Eos # (Auto) (0-0.5) K/uL Baso # (Auto) (0-0.2) K/uL Sodium (136-145) mmol/L Potassium (3.5-5.1) mmol/L Chloride (98-107) mmol/L Carbon Dioxide (21-32) mmol/L Anion Gap (3-11) BUN (7-18) mg/dl Creatinine (0.6-1.2) mg/dl Est Cr Clr Drug Dosing ml/min Est GFR ( Amer) Est GFR (Non-Af Amer) BUN/Creatinine Ratio (10-20) Glucose (70-99) mg/dl Calcium (8.5-10.1) mg/dl Magnesium (1.8-2.4) mg/dl Urine Color Dark Yellow Urine Appearance Clear (Clear) Urine pH 6.0 (4.5-7.5) Ur Specific [place] 1.018 (1.000-1.030) Urine Protein Negative (Negative) Urine Glucose (UA) Negative (Negative) Urine Ketones Trace H (Negative) Urine Blood Negative (Negative) Urine Nitrite Negative (Negative) Urine Bilirubin Negative (Negative) Urine Urobilinogen Negative (Negative) Ur Leukocyte Esterase Negative (Negative) PG Care Time/CCT Total # of Minutes Spent Total Time Spent with Patient: Total time spent is greater than 50% in coordination of care (as documented) at patient's floor/unit and/or counseling patient: (1) Breast cancer Estrogen receptor status: positive Laterality: left Patient sex: female
[2019-05-05] MEDS: LATANOPROST 0.005% OP SOLN 2.5 ML BTL OPR SCH (20:34)
[2019-05-06] MEDS: SODIUM CHLORIDE 0.45 % 1,000 ML IV SCH (00:20)
[2019-05-06] MEDS: LEVOTHYROXINE SODIUM 88 MCG TABLET PO SCH (06:10)
[2019-05-06 06:28] LABS: Mean Corpuscular Hgb Conc 33.3 g/dL (32-36); Mean Platelet Volume 10.7 fL (7.4-10.4); Platelet Count 176 K/uL (130-400); RDW Coefficient of Variation 13.1 % (11.5-14.5); Red Blood Count 3.79 M/uL (4.2-5.4); White Blood Count 3.81 K/uL (4.8-10.8)
[2019-05-06 06:57] LABS: BUN Creatinine Ratio 12.4 (10-20); Calcium 8.3 mg/dl (8.5-10.1); Creatinine Clr Calc Pharmacy 93.7 ml/min; Est GFR (African American) 108.5; Est GFR (Non-African American) 93.7; Magnesium 1.8 mg/dl (1.8-2.4); Potassium 3.7 mmol/L (3.5-5.1)
[2019-05-06] MEDS: COMBIGAN~ORDER AWAITING ACTION SCH ×3 (08:01→23:36)
[2019-05-06] MEDS ORDERED: LEVOTHYROXINE SODIUM 44 MCG in SYRINGE 0 ML IV SCH (09:00)
[2019-05-06] MEDS ORDERED: FAMOTIDINE 20 MG in SYRINGE 3 ML IV SCH (09:00)
[2019-05-06] MEDS: ASPIRIN 325 MG ECTAB PO SCH (09:09)
[2019-05-06] MEDS: MULTIVITAMIN TAB PO SCH (09:09)
[2019-05-06] MEDS: CALCIUM 600MG + VIT D 400 IU TAB PO SCH (09:09)
[2019-05-06] MEDS: PILOCARPINE HCL 1% OP SOLN 15 ML BTL OP SCH ×4 (09:09→20:20)
[2019-05-06] MEDS: TAMOXIFEN CITRATE 10 MG TABLET PO SCH (09:10)
[2019-05-06] MEDS: CHOLECALCIFEROL 1,000 UNITS TAB PO SCH (09:10)
[2019-05-06] MEDS: DOCUSATE SODIUM/SENNA 50/8.6MG TAB PO SCH ×2 (09:10→20:19)
[2019-05-06] MEDS: PANTOprazole 40 MG TAB PO SCH (09:11)
[2019-05-06] MEDS: HEPARIN SOD 5,000 UNIT/0.5 ML VIAL SQ SCH ×2 (09:17→20:20)
--- NOTE | 2019-05-06 10:39 | Surgery Progress Note ---
Date of Service May 06, 2019 Assessment & Plan (1) Acute cholecystitis: doing well from surgery perspective. +bm. no evidence of small bowel ileus. will advance diet. d/c planning. Subjective pt feeling well today other than weak. +BM. "hungry" . no n/v. denies abd pain Physical Exam Physical Exam: alert/oriented. nad abd: soft. nt. wounds look good. Results & Data Vital Signs (Past 12 Hours) Vital Signs Temp Pulse Resp BP Pulse Ox 05/06/19 07:09 37.0 C 82 18 151/82 H 94 05/05/19 22:46 36.6 C 70 16 126/75 97
--- NOTE | 2019-05-06 12:20 | Hospitalist Progress Note ---
Date of Service May 06, 2019 Assessment & Plan (1) Acute cholecystitis: - Noted on CT A/P at admission after presenting with abdominal pain. - General surgery consulted, s/p lap alexia on 05/03, POD#3. - Regular diet as tolerated. (2) Ileus: - Noted on KUB on 05/05 - has had multiple BMs since imaging was completed. - Regular diet as tolerated; continue PO meds. - Senokot S BID scheduled, also received dose of Miralax today. (3) Oliguria: - Adequate urine output, now resolved; no IVFs indicated. - Monitor strict I/Os; removed quiñones on 05/05, voiding well. - U/a negative for cast cells. Renal function has been stable. (4) Hypothyroidism: - Continue Synthroid. - TSH was 2.840. (5) Hypertension: - Holding Lisinopril due to hypotension. (6) History of DVT (deep vein thrombosis): - Previously treated with Warfarin; on Aspirin 325 mg daily at home, now resumed. - Heparin ppx BID. - High risk for DVT due to malignancy - encouraged frequent ambulation. (7) Breast cancer: - H/o -- continue Tamoxifen as prescribed. (8) GERD (gastroesophageal reflux disease): - Protonix daily. (9) Ascending aortic aneurysm: - Noted on CT A/P, monitor as outpatient. (10) Generalized weakness: - PT/OT ordered -- pt and family would like SNF placement. - email operations manager following. (11) Electrolyte abnormality: - No replacement required. (12) DVT prophylaxis: - Heparin ppx BID. Dispo: Med/surg for treatment of acute cholecystitis; discharge pending SNF placement, likely over next 24-48 hours. Subjective Pt feels very weak, fatigued today. She has issues with standing from seated position but once she is standing pt. can ambulate without difficulty. Denies dizziness, lightheadedness with standing. Will order PT/OT -- pt and family are interested in SNF placement. Denies abd pain. Is passing gas but last BM was yesterday afternoon (very small). Will give Miralax and monitor for BM in setting of ileus on KUB yesterday. Review of Systems Review of Systems: All systems reviewed & are unremarkable except as noted in HPI & below Constitutional: + fatigue and + weakness; no fever and no chills Respiratory: no cough, no dyspnea, no dyspnea on exertion and no wheezing Cardiovascular: no chest pain, no palpitations, no lightheadedness, no syncope and no edema Gastrointestinal: + constipation; no abdominal pain, no nausea, no vomiting and no diarrhea/loose stools Genitourinary: no difficulty urinating Musculoskeletal: no back pain and no joint pain Integumentary: no non-healing lesions Neurologic: + unsteadiness and + generalized weakness Physical Exam Physical Exam: General: Resting comfortably in no apparent distress HEENT: NC/AT; PERRLA with EOMI; [place] conjunctiva, MMM. No erythema of posterior pharynx Neck: Supple and nontender Cardiac: RRR Lungs: CTA bilaterally; No rhonchi, wheezing, or rales Abdomen: Bowel normoactive X 4; nontender to light palpation Extremities: Warm. No edema present Neuro: No focal weakness Skin: No rash Results & Data Vital Signs (Past 12 Hours) Vital Signs Temp Pulse Resp BP Pulse Ox 05/06/19 07:09 37.0 C 82 18 151/82 H 94 Laboratory Results 05/06/19 05/06/19 Range/Units 06:06 06:06 WBC 3.81 L (4.8-10.8) K/uL RBC 3.79 L (4.2-5.4) M/uL Hgb 12.0 (12.0-16.0) g/dL Hct 36.0 L (37-47) % MCV 95.0 (80-100) fL MCH 31.7 (25-34) pg MCHC 33.3 (32-36) g/dL RDW Std Deviation 46.0 (36.4-46.3) fL RDW Coeff of Cheri 13.1 (11.5-14.5) % Plt Count 176 (130-400) K/uL MPV 10.7 H (7.4-10.4) fL Sodium 145 (136-145) mmol/L Potassium 3.7 (3.5-5.1) mmol/L Chloride 114 H (98-107) mmol/L Carbon Dioxide 25 (21-32) mmol/L Anion Gap 5.0 (3-11) BUN 5 L (7-18) mg/dl Creatinine 0.40 L (0.6-1.2) mg/dl Est Cr Clr Drug Dosing 93.7 ml/min Est GFR ( Amer) 108.5 Est GFR (Non-Af Amer) 93.7 BUN/Creatinine Ratio 12.4 (10-20) Glucose 90 (70-99) mg/dl Calcium 8.3 L (8.5-10.1) mg/dl Magnesium 1.8 (1.8-2.4) mg/dl PG Care Time/CCT Total # of Minutes Spent Total Time Spent with Patient: Total time spent is greater than 50% in coordination of care (as documented) at patient's floor/unit and/or counseling patient: (1) Breast cancer Estrogen receptor status: positive Laterality: left Patient sex: female
[2019-05-06] MEDS: LATANOPROST 0.005% OP SOLN 2.5 ML BTL OPR SCH (20:19)
[2019-05-07] MEDS: LEVOTHYROXINE SODIUM 88 MCG TABLET PO SCH (06:16)
[2019-05-07 06:54] LABS: BUN Creatinine Ratio 12.2 (10-20); Calcium 7.8 mg/dl (8.5-10.1); Creatinine Clr Calc Pharmacy 81.4 ml/min; Est GFR (African American) 103.7; Est GFR (Non-African American) 89.4; Potassium 3.6 mmol/L (3.5-5.1)
[2019-05-07] MEDS: COMBIGAN~ORDER AWAITING ACTION SCH (07:50)
[2019-05-07] MEDS: PANTOprazole 40 MG TAB PO SCH (07:55)
[2019-05-07] MEDS: ASPIRIN 325 MG ECTAB PO SCH (07:55)
[2019-05-07] MEDS: TAMOXIFEN CITRATE 10 MG TABLET PO SCH (07:55)
[2019-05-07] MEDS: CALCIUM 600MG + VIT D 400 IU TAB PO SCH (07:55)
[2019-05-07] MEDS: MULTIVITAMIN TAB PO SCH (07:55)
[2019-05-07] MEDS: DOCUSATE SODIUM/SENNA 50/8.6MG TAB PO SCH (07:55)
[2019-05-07] MEDS: PILOCARPINE HCL 1% OP SOLN 15 ML BTL OP SCH ×2 (07:56→12:08)
[2019-05-07] MEDS: CHOLECALCIFEROL 1,000 UNITS TAB PO SCH (07:56)
[2019-05-07] MEDS: HEPARIN SOD 5,000 UNIT/0.5 ML VIAL SQ SCH (07:56)
--- NOTE | 2019-05-07 09:12 | Surgery Progress Note ---
Date of Service May 07, 2019 Assessment & Plan (1) Acute cholecystitis: POD # 4 s/p lap alexia - vitals stable, afebrile - minimal post op pain - decreased strength need for deconditioning - urinary retention, resolved Plan: Okay from surgical standpoint for discharge to SNF for rehabilitation continue tylenol prn pain Boost BID now at on discharge given decreased strength discharge instructions reviewed will go home with blanca drain, blanca drain teaching f/u surgery office on with Dr. Gray given age would not send home with narcotic pain well controlled with Tylenol Dr. Gray has seen and examined pt, agrees with above Subjective feeling fine other than "i have lost all my strength" only having pain with movement tolerating diet no n/v Physical Exam Constitutional: WD/WN, vitals as above no acute distress Respiratory: normal respiratory effort; no respiratory distress Gastrointestinal (Abdomen): Inspection/Auscultation: abdomen normal to inspection and + abdominal surgical drain present (bloody serosanguineous); abdomen not distended Percussion/Palpation: abdomen soft; abdomen nontender, no guarding and abdomen not rigid Skin: no rashes, warm and dry + incision (covered with dressings) Psychiatric: A+Ox3, euthymic affect Results & Data Vital Signs (Past 12 Hours) Vital Signs Temp Pulse Pulse Resp BP BP Pulse Ox 05/07/19 07:14 37.1 C 74 16 135/78 95 05/06/19 22:42 36.7 C 74 16 122/76 95 Laboratory Results 05/07/19 Range/Units 06:09 Sodium 144 (136-145) mmol/L Potassium 3.6 (3.5-5.1) mmol/L Chloride 113 H (98-107) mmol/L Carbon Dioxide 29 (21-32) mmol/L Anion Gap 2.0 L (3-11) BUN 6 L (7-18) mg/dl Creatinine 0.46 L (0.6-1.2) mg/dl Est Cr Clr Drug Dosing 81.4 ml/min Est GFR ( Amer) 103.7 Est GFR (Non-Af Amer) 89.4 BUN/Creatinine Ratio 12.2 (10-20) Glucose 105 H (70-99) mg/dl Calcium 7.8 L (8.5-10.1) mg/dl
--- NOTE | 2019-05-07 17:59 | Discharge Summary ---
Date of Service May 07, 2019 Admission HPI Per Admitting Provider 88-year-old female with nausea and right upper quadrant pain for the past 3 days. She saw her primary care physician who obtained a CT scan which reveals evidence of acute cholecystitis. The patient does not appear to be septic at this time and she continues to have bowel movements although she has chronic constipation. Lab studies are pending at the time of my examination. She has been administered Zosyn and surgery will be evaluating her shortly here in the ED. She will be kept n.p.o. in the event that surgery will be done later today. Principal Diagnosis Acute Cholecystitis S/P Lap Susan Discharge Exam Constitutional WD/WN, vitals as above Eyes + anicteric sclerae ENMT Ears: no hearing impairment Neck trachea midline Respiratory normal respiratory effort, lungs clear to auscultation Cardiovascular Rate/Rhythm: regular rate and regular rhythm Heart Sounds: + murmur Gastrointestinal (Abdomen) Inspection/Auscultation: normal bowel sounds; abdomen not distended Percussion/Palpation: abdomen soft; abdomen nontender Musculoskeletal Head/Neck/Chest: normocephalic, head atraumatic and neck supple + PASTOR drain with serosang fluid Skin no rashes, warm and dry Neurologic moves all extremities Psychiatric A+Ox3, euthymic affect Discharge Data Allergies Allergy/AdvReac Type Severity Reaction Status Date / Time No Known Drug Allergies Allergy Verified 05/02/19 14:33 Consultations 05/02/19 15:00 Consult General Surgery Stat ED Decision to Admit Stat 05/02/19 16:53 Consult General Surgery Routine Procedures Performed Operation Date: 05/03/19 11:00 Actual Procedures p Laparoscopic Cholecystectomy(Not Applicable) - Refugio Gray MD Hospital Course (1) Acute cholecystitis: - S/P Lap Susan on 05/03 and doing well post-operatively and tolerating diet without issue - PASTOR drain is present and plans to remain until F/U - Gen Surg followed - appt placed for F/U with Dr. Gray (2) Ileus: - Develop post-operatively but resolved and having adequate bowel movements and tolerating diet - Plans to continue Prune/Apple Juice/Butter mixture but can continue Colace/Miralax if needed - she does endorse chronic issues with constipation (3) Oliguria: - Had some issues post-operatively and possibly related to Smart placement - now currently resolved - UA negative and renal function stable (4) Hypothyroidism: - Continue Synthroid. - TSH was 2.840. (5) Hypertension: - Continue Lisinopril 5 mg daily (6) History of DVT (deep vein thrombosis): - Previously treated with Warfarin; on Aspirin 325 mg daily at home, now resumed. (7) Breast cancer: - H/O -- continue Tamoxifen as prescribed. (8) Ascending aortic aneurysm: - Noted on CT A/P, currently at 4.8 - monitor as outpatient. (9) Generalized weakness: - PT/OT ordered -- pt and family would like SNF placement and will have stay at [facility] Total Time Total Time Spent Total Time Spent (In Minutes): Greater than 30 minutes Discharge Plan Discharge Items Patient Disposition: Transfer Residential Fac Reason For Visit: ACUTE CHOLECYSTITIS Discharge Diagnosis: Acute Cholecystitis Discharge Goals: Decrease discomfort, Improve function and Increase independence Activity: As commented below Non-emergency contact: Primary Care Provider and Surgeon Call non-emergency contact if: you have any medication questions, your symptoms worsen and you have a fever Follow-up/Referrals: Star Saba MD [Primary Care Provider] - Refugio Gray MD [Physician] - 05/10/19 11:15 am (A follow up appointment has been made for you with Dr. Gray for [facility], May 10, 2019 at 11:15am.) Diet: Low Fat Addtl Provider Instructions: Surgical discharge instructions: - No heavy lifting over 10 pounds for 4 weeks - No strenuous activity until cleared by surgeon - No submerging incisions underwater for 2 weeks ( no bathing, swimming, or hot tubs) - No driving while taking narcotic pain medication or until you are pain free - You will be going home with surgical drain, empty drain at least twice a day and as needed and record amount emptied. - You may shower, advised to keep dressing on around drain while showering and then replace after you shower. - You may take dressings off on the other 3 incisions before you shower and replace daily. - Leave steri strips on incisions until seen in office on . 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 - May take extra strength Tylenol as needed for pain. - Recommend stool softener (Either Colace or Senokot) twice a day to prevent constipation. You may take Miralax or Milk of Magnesia. Drink plenty of liquids and may continue prune juice and prunes. - Follow-up in surgical office as scheduled on with Dr. Gray. Call office at [phone] if you have any questions or concerns. Acute Cholecytitis: - Please follow the recommendations above by your surgeon and follow-up with them. - Recommend to eat a low fat diet initially as you can get some diarrhea with fatty foods after you have your gallbladder out. In about 1-2 weeks you can gradually add some fatty foods into the diet but just watch for any intolerance to them - You did have some slowing of your bowels or an ileus after surgery. Goal will be to keep a good bowel regimen to prevent constipation as well drink plenty of fluids and walk to keep the bowels more regular -- Can continue to use the Prune juice/apple juice/butter mixture if this helps. Can also use a stool softener daily/twice a day. Can also use Miralax if needed. - Pain has been well controlled on Tylenol and can continue Hypothyroidism: - Continue Synthroid. - TSH was 2.840. Hypertension: - Continue Lisinopril History of DVT (deep vein thrombosis): - Previously treated with Warfarin; on Aspirin 325 mg daily at home, now resumed. - High risk for DVT due to malignancy - encouraged frequent ambulation. Breast cancer: - H/o -- continue Tamoxifen as prescribed. Ascending aortic aneurysm: - Noted on CT A/P, monitor as outpatient. Prescriptions: Continued tamoxifen 20 mg tablet 20 mg PO DAILY RF: 0 aspirin 325 mg tablet 325 mg PO DAILY RF: 0 polyethylene glycol 3350 17 gram/dose powder 17 g PO DAILY PRN (Reason: Constipation) RF: 0 lisinopril 5 mg tablet 5 mg PO DAILY Qty: 90 RF: 0 acetaminophen 650 mg tablet extended release 1,300 mg PO DAILY RF: 0 amoxicillin 500 mg tablet 2,000 mg PO .COMPLEX RF: 0 Combigan 0.2-0.5 % drops 2 drops OP .COMPLEX RF: 0 cholecalciferol (vitamin D3) 2,000 unit capsule 2,000 units PO DAILY RF: 0 omega-3 acid ethyl esters 1 gram capsule 1 cap PO DAILY RF: 0 levothyroxine 88 mcg tablet 88 mcg PO DAILY Qty: 90 RF: 0 omeprazole 40 mg capsule,delayed release(DR/EC) 40 mg PO DAILY Qty: 90 RF: 0 docusate calcium 240 mg capsule 240 mg PO DAILY PRN (Reason: Constipation) RF: 0 calcium carbonate-vitamin D3 600 mg calcium- 200 unit capsule 1 cap PO DAILY RF: 0 bzmnukgx-aob-[id number]-jzqo [Ooaiqz-Nntre-MFD (with antiox)] 500-500-66.7 mg tablet 1 tab PO DAILY RF: 0 latanoprost 0.005 % drops 1 drops OP .COMPLEX RF: 0 Macuvite With Lutein 5,000-60-30-2 glhh-jx-shwy-mg tablet 1 tab PO BID RF: 0 multivitamin [Daily Multi-Vitamin] tablet 1 tab PO DAILY RF: 0 pilocarpine HCl 1 % drops 1 drops OP QID RF: 0 Rhopressa 0.02 % Drops 1 drp OPHTHALMIC (EYE) PM RF: 0 Stand-Alone Forms: [facility]/Other Patient Handouts: Tube Diego Taylor Drainage Care Discharge Orders: Discharge Order (Routine); Ordered 05/07/19 Ordered By: Mandi Cisneros Skilled Items Patient informed of condition?: Yes DNR: No Discharge Level of Care: Skilled Communicable Disease: No Discharge Prognosis: Stable Admission Data Admit Date/Time: 05/02/19 15:38 Attending Provider: Db Rahman Admit Provider: Gavino Fisher Primary Care Provider: Star Saba Other Providers: Refugio Gray Service: Medical Other Interventions: Discharge Summary Assessment (RN) Last Done: 05/07/19 13:31 Pending Studies at Discharge: No DC Date/Time DO NOT enter until pt leaves facility: 05/07/19 14:05 Supervising Physician Co-Signing Physician Notes Attending note: patient seen and examined with Mandi Cisneros PA-C. I agree with her discharge summary. - s/p lap susan for cholecystitis patient feeling great, minimal pain, only required a single dose of Tylenol eating well, moving bowels PASTOR drain to stay in place and will follow up with general surgery in the office
== END 2019-05-07 14:05 | DRG 418 ==
LOC: ED 13:39 → SUATTDRO 15:38 → 3N 15:38